=== PATIENT | male | born 1940 | race Two or more races ===

== ENCOUNTER 2018-05-10 06:15 | Emergency (ER) | payer MEDICARE ==
[~2018-05-10] VITALS: Ht 177.8 cm; Wt 64.4 kg
--- NOTE | 2018-05-10 06:25 | NUR ---
Pt MARLEY from [facility] for falling. Hematoma noted on Forehead, Abrasion on R elbow. Pt. AXO4. Respirations even and unlabored. Pt put on the solid surface fabricator and pulse ox. Pending eval form CHUCKIE JERONIMO.
[2018-05-10] MEDS ORDERED: ACETAMINOPHEN ES 500 MG TABLET PO ONE (06:30)
[2018-05-10] MEDS ORDERED: ACETAMINOPHEN ES 500 MG TABLET ONE (06:37)
--- NOTE | 2018-05-10 06:41 | NUR ---
Pt taken to CT.
--- NOTE | 2018-05-10 06:55 | NUR ---
EKG at bedside.
[2018-05-10 07:08] LABS: CALCIUM, SERUM 8.5 mg/dL (8.5-10.1); CARBON DIOXIDE 28 mmol/L (21-32); CHLORIDE 99 mmol/L (98-107); CREATININE 0.8 mg/dL (0.6-1.3); GLUCOSE 95 mg/dL (74-106); SODIUM SERUM 132 mmol/L (136-145); UREA NITROGEN, BLOOD 13 mg/dL (7-18)
[2018-05-10 07:11] LABS: BASOPHILS % (AUTO) 0.3 % (0.0-2.0); EOSINOPHILS % (AUTO) 3.4 % (0.0-6.0); HEMATOCRIT 37 % (39-51); HEMOGLOBIN 12.1 g/dL (13.5-17.5); LYMPHOCYTES # (AUTO) 1.1 /CMM (0.8-4.8); LYMPHOCYTES % (AUTO) 23.8 % (20.0-44.0); MEAN CORPUSCULAR HGB CONC 33 g/dl (31.0-36.0); MEAN CORPUSCULAR VOLUME 84 fL (80-96); MONOCYTES # (AUTO) 0.6 /CMM (0.1-1.30); MONOCYTES % (AUTO) 13.5 % (2.0-12.0); NEUTROPHILS # (AUTO) 2.6 /CMM (1.8-8.9); PLATELET COUNT (AUTO) 196 /CMM (150-450); RED BLOOD CELL COUNT(AUTO) 4.39 MIL/uL (4.5-6.0); WHITE BLOOD COUNT (AUTO) 4.5 K/uL (4.3-11.0)
[2018-05-10 07:14] LABS: ALANINE AMINOTRANSFERASE 23 U/L (12-78); ALKALINE PHOSPHATASE 66 U/L (46-116); ASPARTATE AMINOTRANSFERASE 9 U/L (15-37); BILIRUBIN,DIRECT 0.1 mg/dL (0.0-0.2); BILIRUBIN,TOTAL 0.4 mg/dL (0.2-1.0); TOTAL PROTEIN, SERUM 6.4 g/dL (6.4-8.2)
--- NOTE | 2018-05-10 07:32 | NUR ---
Report given to Nomi SHAH for CODIE.
--- NOTE | 2018-05-10 10:21 | NUR ---
called reva eta is 1200 per janette with trip number [id number]
--- NOTE | 2018-05-10 11:10 | NUR ---
Patient discharged back to SNF in stable condition. Written and verbal after care instructions given. Patient verbalizes understanding of instruction, unable to sign at this time due to fracture. Sling applied. EMT came and report given. Transferred to facility in no distress.
[2018-05-10 11:14] VITALS: BP 118/68
== END 2018-05-10 11:15 ==
LOC: EDSEX 06:20 → ER 06:20
DX: S42.254A Nondisplaced fracture of greater tuberosity of right humerus, initial encounter for closed fracture (principal); S00.83XA Contusion of other part of head, initial encounter; S50.311A Abrasion of right elbow, initial encounter; G20 Parkinson's disease; F02.80 Dementia in other diseases classified elsewhere, unspecified severity, without behavioral disturbance, psychotic disturbance, mood disturbance, and anxiety; W18.09XA Striking against other object with subsequent fall, initial encounter; Y93.89 Activity, other specified; Y92.002 Bathroom of unspecified non-institutional (private) residence as the place of occurrence of the external cause; Y99.8 Other external cause status; R41.82 Altered mental status, unspecified
CPT/HCPCS: 36415; 70450; 72125; 73060; 73080; 80048; 80076; 84484 ×2; 85025; 85730; 93005 ×2; 99285; A4606

== ENCOUNTER 2018-08-11 20:25 | Inpatient (IN) | payer MEDICARE, MEDICAID ==
[~2018-08-11] VITALS: Ht 175.3 cm; Wt 71.7 kg
--- NOTE | 2018-08-11 20:40 | NUR ---
TO BED 3 [facility] C/O FEVER OF 102 X3 HOURS. PT MORE ALTERED THAN NORMAL PER EMT REPORT. PLACE PT ON CARDAIC MONITORING, CONTINUOUS POX. PENDING ER MD HERNADEZ.
[2018-08-11] MEDS ORDERED: PIPERACILLIN /TAZOBACTAM 3.375 G VIAL IV ONE (20:51)
[2018-08-11] MEDS ORDERED: LIDOCAINE 2% JEL UROJET 10 ML MM ONE ×2 (20:52→22:00)
[2018-08-11 20:57] LABS: BASOPHILS % (AUTO) 0.2 % (0.0-2.0); HEMATOCRIT 37 % (39-51); HEMOGLOBIN 12.4 g/dL (13.5-17.5); LYMPHOCYTES # (AUTO) 0.5 /CMM (0.8-4.8); LYMPHOCYTES % (AUTO) 5.2 % (20.0-44.0); MEAN CORPUSCULAR HGB CONC 34 g/dl (31.0-36.0); MEAN CORPUSCULAR VOLUME 86 fL (80-96); MONOCYTES # (AUTO) 0.7 /CMM (0.1-1.30); MONOCYTES % (AUTO) 7.4 % (2.0-12.0); NEUTROPHILS # (AUTO) 8.7 /CMM (1.8-8.9); NEUTROPHILS % (AUTO) 87.2 % (43.0-81.0); PLATELET COUNT (AUTO) 184 /CMM (150-450); RED BLOOD CELL COUNT(AUTO) 4.27 MIL/uL (4.5-6.0); WHITE BLOOD COUNT (AUTO) 9.9 K/uL (4.3-11.0)
[2018-08-11] MEDS ORDERED: IV NS 0.9% 1,000 ML BAG IV ONE ×2 (21:00)
[2018-08-11] MEDS ORDERED: IV NS 0.9% 500 ML BAG IV ONE (21:00)
[2018-08-11] MEDS ORDERED: PIPERACILLIN /TAZOBACTAM 3.375 G in IV D5W 50 ML IV ONE (21:00)
--- NOTE | 2018-08-11 21:05 | NUR ---
I&O cath done. urine sample collected and sent to lab.
[2018-08-11 21:06] LABS: CALCIUM, SERUM 8.4 mg/dL (8.5-10.1); CARBON DIOXIDE 28 mmol/L (21-32); CHLORIDE 96 mmol/L (98-107); CREATININE 0.9 mg/dL (0.6-1.3); GLUCOSE 139 mg/dL (74-106); POTASSIUM 3.9 mmol/L (3.5-5.1); SODIUM SERUM 132 mmol/L (136-145); UREA NITROGEN, BLOOD 16 mg/dL (7-18)
[2018-08-11 21:11] LABS: ALANINE AMINOTRANSFERASE 26 U/L (12-78); ALBUMIN 2.9 g/dL (3.4-5.0); ALKALINE PHOSPHATASE 49 U/L (46-116); ASPARTATE AMINOTRANSFERASE 14 U/L (15-37); BILIRUBIN,DIRECT 0.1 mg/dL (0.0-0.2); BILIRUBIN,TOTAL 0.4 mg/dL (0.2-1.0); TOTAL PROTEIN, SERUM 6.6 g/dL (6.4-8.2)
--- NOTE | 2018-08-11 21:19 | NUR ---
DAUGHTER IN-LAW ARSLAN IS PERSON OF CONTACT
[2018-08-11 21:26] LABS: APPEARANCE,URINE CLEAR (CLEAR); BILIRUBIN,URINE NEGATIVE (NEGATIVE); BLOOD, URINE NEGATIVE Ery/uL (NEGATIVE); COLOR,URINE YELLOW (YELLOW); KETONES,URINE TRACE (NEGATIVE); LEUKOCYTE ESTERASE ,URINE NEGATIVE (NEGATIVE); NITRITE, URINE NEGATIVE (NEGATIVE); PROTEIN,URINE NEGATIVE (NEGATIVE); UGLUCOSE NEGATIVE (NEGATIVE)
--- NOTE | 2018-08-11 21:35 | NUR ---
CALLED FOR ICU BED ([phone]), TURNING IN MOVE SHEET.
[2018-08-11 21:41] LABS: BACTERIA,URINE Rare /HPF (None Seen); RBC,URINE NONE SEEN /HPF (0-2); SQUAMOUS EPITHELIAL CELL,UR Rare /HPF (None Seen); WBC,URINE 0-2 /HPF (0-3)
--- NOTE | 2018-08-11 21:50 | NUR ---
ER SPOKE TO NONA DOAN REGARDING PT ADMISSION. WILL CALL FOR REPORT.
[2018-08-11] MEDS ORDERED: ZOLPIDEM TARTRATE 5 MG TABLET PO PRN (22:00)
[2018-08-11] MEDS ORDERED: MAGNESIUM HYDROXIDE 30 ML UDC PO PRN (22:00)
[2018-08-11] MEDS ORDERED: ATORVASTATIN 40 MG TABLET PO SCH (22:00)
[2018-08-11] MEDS ORDERED: Z GUARD REMEDY 2 OZ OINT TP PRN (22:00)
[2018-08-11] MEDS ORDERED: ONDANSETRON HCL/PF 4 MG/2 ML VIAL IVP PRN (22:00)
[2018-08-11] MEDS ORDERED: CRAN450C PO (22:28)
[2018-08-11] MEDS ORDERED: DOCU100C36 PO (22:28)
[2018-08-11] MEDS ORDERED: BENZ2AMP PO (22:28)
[2018-08-11] MEDS ORDERED: DIVA500T2 PO (22:29)
[2018-08-11] MEDS ORDERED: NA P133E RC (22:30)
[2018-08-11] MEDS ORDERED: ATOR10TA PO (22:30)
[2018-08-11] MEDS ORDERED: MAGN2400 PO (22:31)
[2018-08-11] MEDS ORDERED: RISP2TAB23 PO (22:31)
[2018-08-11] MEDS ORDERED: ACET325C5 PO (22:32)
[2018-08-11] MEDS ORDERED: ENOXAPARIN SODIUM 80 MG/0.8 ML DISP.SYRIN SQ ONE (22:33)
--- NOTE | 2018-08-11 22:42 | NUR ---
REPORT CALLED TO CHLORINE PLANT OPERATORPABLO JOHNSON. WILL TRANSPORT PT VIA ACLS PROTOCOL.
[2018-08-11] MEDS: ENOXAPARIN SODIUM 60 MG/0.6 ML DISP.SYRIN SQ SCH (23:56)
[2018-08-12] VITALS (63 sets, daily range): BP systolic 78–124; BP diastolic 36–79
[2018-08-12] MEDS ORDERED: ALBUTEROL FS 2.5 MG/0.5 ML VIAL.NEB NEB PRN (03:00)
[2018-08-12] MEDS ORDERED: IV NS 0.9% 1,000 ML IV PRN (03:00)
[2018-08-12] MEDS ORDERED: NOREPINEPHRINE 4 MG/4 ML AMPUL IV ONE (04:05)
[2018-08-12] MEDS: NOREPINEPHRINE 8 MG in IV D5W 500 ML IV PRN ×2 (04:06→13:36)
--- NOTE | 2018-08-12 04:24 | NUR ---
RN NOTES RECEIVED PATIENT IN BED, AWAKE, ABLE TO COMMUNICATE NEEDS VERBALLY. ALERT AND ORIENTED IN NO APPARENT DISTRESS, BREATHING EVEN AND UNLABORED. NO COMPLAINT OF PAIN OR DISCOMFORT. BREATHING EVEN AND UNLABORED. ON 2LPM O2 VIA NASAL CANNULA WELL TOLERATED. INSERTED BRYAN CATH PER MD'S ORDER, PROCEDURE WELL TOLERATED. FC DRAINING CLEAR YELLOW WITH NO FOUL ODOR URINE. NOTED AT ABOUT 4AM PATIENT'S BP WENT DOWN TO 78/53. LEVOPHED ADMINISTERED ORDERED, BP WENT UP TO 101/63. NEEDS ATTENDED. KEPT CLEAN AND DRY. REMAINS AFEBRILE WITH SKIN WARM AND DRY TO TOUCH. WILL ENDORSE TO AM SHIFT FOR CONTINUITY OF CARE
[2018-08-12] MEDS ORDERED: PIPERACILLIN /TAZOBACTAM 3.375 G VIAL IV ONE (04:28)
[2018-08-12 04:55] LABS: BASOPHILS % (AUTO) 0.1 % (0.0-2.0); HEMATOCRIT 33 % (39-51); HEMOGLOBIN 11.3 g/dL (13.5-17.5); LYMPHOCYTES # (AUTO) 0.9 /CMM (0.8-4.8); MEAN CORPUSCULAR HGB CONC 34 g/dl (31.0-36.0); MEAN CORPUSCULAR VOLUME 87 fL (80-96); MONOCYTES # (AUTO) 0.8 /CMM (0.1-1.30); MONOCYTES % (AUTO) 8.5 % (2.0-12.0); NEUTROPHILS # (AUTO) 7.9 /CMM (1.8-8.9); NEUTROPHILS % (AUTO) 82.4 % (43.0-81.0); PLATELET COUNT (AUTO) 147 /CMM (150-450); WHITE BLOOD COUNT (AUTO) 9.5 K/uL (4.3-11.0)
[2018-08-12] MEDS ORDERED: PIPERACILLIN /TAZOBACTAM 3.375 G in IV D5W 50 ML IV SCH (05:00)
[2018-08-12] MEDS: IPRATROPIUM NEB FS 0.5 MG/2.5 ML AMPUL.NEB NEB PRN (05:00)
[2018-08-12] MEDS: ACETYLCYSTEINE 10% SOLN 400 MG/4 ML VIAL NEB SCH ×4 (05:00→23:17)
[2018-08-12 05:08] LABS: CALCIUM, SERUM 7.4 mg/dL (8.5-10.1); CARBON DIOXIDE 25 mmol/L (21-32); CHLORIDE 101 mmol/L (98-107); CREATININE 0.6 mg/dL (0.6-1.3); GLUCOSE 88 mg/dL (74-106); MAGNESIUM 1.4 mg/dL (1.8-2.4); POTASSIUM 3.3 mmol/L (3.5-5.1); SODIUM SERUM 132 mmol/L (136-145); UREA NITROGEN, BLOOD 13 mg/dL (7-18)
[2018-08-12 05:16] LABS: CHOLESTEROL 75 mg/dL (<200); HDL CHOLESTEROL 38 mg/dL (40-60); LDL 31 mg/dL (0-99); TRIGLYCERIDES 19 mg/dL (30-150)
--- NOTE | 2018-08-12 06:53 | NUR ---
RN NOTES LAB CALLED CRITICAL HIGH RESULT FOR TROPONIN 4.8 FROM 2.8 AND LOW MAGNESIUM LEVEL. CALLED MD AND OBTAINED ORDER OF 2 GR MG. TRANSCRIBED ORDER, STILL WAITING FOR PHARMACY TO VERIFY. WILL ENDORSE TO NEXT SHIFT FOR CONTINUITY OF CARE.
--- NOTE | 2018-08-12 07:15 | NUR ---
RN INITIAL NOTES RECEIVED PT ASLEEP, EASY TO AROUSE. ON 02 VIA NC AT 2LM. NO RESPIRATORY DISTRESS NOTED. NO SOB NOTED. NO SIGNS OF ANY PAIN. HOB ELEVATED. IV LINES IN PLACE. IVF INFUSING. ON LEVO AT 6MCG/MIN. WILL TITRATE ACCORDINGLY. FC IN PLACE. BLE ELEVATED. WILL MONITOR
[2018-08-12 08:21] LABS: THYROID STIMULATING HORMONE 0.992 uIU/mL (0.358-3.74)
[2018-08-12] MEDS ORDERED: BENZ0.5T43 PO (08:28)
[2018-08-12] MEDS ORDERED: MAGN400O6 PO (08:28)
[2018-08-12] MEDS ORDERED: RISP0.2515 PO (08:28)
[2018-08-12] MEDS ORDERED: DIVA500T2 PO (08:28)
[2018-08-12] MEDS ORDERED: NA P133E RC (08:28)
[2018-08-12] MEDS: Magnesium 1GM/D5W 100ML PREMIX 100 ML IV SCH ×4 (08:47→11:50)
[2018-08-12] MEDS: ASPIRIN 81 MG TAB.CHEW PO SCH (08:47)
[2018-08-12] MEDS: POTASSIUM CHLORIDE 20 MEQ TAB.PRT.SR PO SCH ×3 (08:47→10:27)
[2018-08-12] MEDS: IV NS 0.9% 1,000 ML IV PRN ×2 (08:47→13:28)
[2018-08-12] MEDS: ENOXAPARIN SODIUM 60 MG/0.6 ML DISP.SYRIN SQ SCH ×2 (09:15→21:30)
--- NOTE | 2018-08-12 13:00 | NUR ---
RN NOTES SEEN AND EXAMINED BY DR ARRIETA. AWARE OF LAB VALUES AND CXR RESULT. WILLAM PICC INSERTED DUE TO LEVO USE. PT ON LEVO. MAGNESIUM REPLACED. TROPONIN 4.257 FROM 4.80, TRENDING DOWN. DR GILMORE AWARE. ORDERED ECHO AND EKG. WILL CLOSELY MONITOR
[2018-08-12] MEDS: PIPERACILLIN /TAZOBACTAM 3.375 G in IV D5W 100 ML IV SCH ×2 (13:28→21:30)
--- NOTE | 2018-08-12 16:28 | NUR ---
PT RESTING ON O2 AT 2 LPM NC ON [id number] RUNNING THROUGH [employer]
--- NOTE | 2018-08-12 17:49 | NUR ---
TEXTED MD ARRIETA TO SEE IF PT CAN EAT KUB DONE
--- NOTE | 2018-08-12 17:53 | NUR ---
CLOSING PT ALERT VERBAL BUT WITH HISTORY OF DEMENTIA, PT ON LEVO DRIP AT 8 MCG THROUGH PICC IN WILLAM DOWNING DONE DINNER ORDERED FOR PT CARDIAC DIET PT TAKEN OFF FLUIDS AND HAS BRYAN ALL NEEDS TENDED TOO WILL ENDORSE CARE TO PM SHIFT FOR CONTINUITY OF CARE
--- NOTE | 2018-08-12 18:20 | NUR ---
SWALLOW TEST PT SAT UPRIGHT ABLE TO COUGH AND HAS A GAG. PT GIVEN ICE CHIPS, WATER,JUICE, APPLE SAUCE, AND CRACKER ALL WITHOUT COUGHING OR CHOKING
--- NOTE | 2018-08-12 18:27 | NUR ---
SWALLOW EVAL ALSO GAVE PUDDING
--- NOTE | 2018-08-12 19:30 | NUR ---
PROFESSOR OF BIOSTATISTICS RCD PT W/DX NSTEMI; PT A/O x2 NSR ON MONITOR; ON LEVOPHED @ 8 MCG/MIN TO MAINTAIN SBP >90<150. BRYAN CATH DRAINING ADEQUATE AMOUNT OF DARK COLORED URINE.
--- NOTE | 2018-08-12 19:40 | NUR ---
LABOR CONCILIATOR CALLED [facility], OTHER UNITS, NURSING INDUSTRIAL CONVEYOR BELT REPAIRER NO SCD MACHINES AVAILABLE AT THIS TIME.
--- NOTE | 2018-08-12 23:30 | NUR ---
AVICULTURIST PT NOTED TO BE CONFUSED AT THIS TIME; ASKING TO BE PREPARED FOR BREAKFAST. REORIENTED TO TIME AND SITUATION AND PT COMPLIANT WITH SITUATION. CONTINUE TO MONITOR.
[2018-08-13] VITALS (79 sets, daily range): BP systolic 85–123; BP diastolic 36–74
[2018-08-13] MEDS: PIPERACILLIN /TAZOBACTAM 3.375 G in IV D5W 100 ML IV SCH ×3 (04:00→20:47)
[2018-08-13 04:57] LABS: BASOPHILS % (AUTO) 0.1 % (0.0-2.0); EOSINOPHILS % (AUTO) 0.1 % (0.0-6.0); HEMATOCRIT 31 % (39-51); HEMOGLOBIN 10.6 g/dL (13.5-17.5); LYMPHOCYTES # (AUTO) 0.7 /CMM (0.8-4.8); LYMPHOCYTES % (AUTO) 8.4 % (20.0-44.0); MEAN CORPUSCULAR HGB CONC 34 g/dl (31.0-36.0); MEAN CORPUSCULAR VOLUME 87 fL (80-96); MONOCYTES # (AUTO) 0.5 /CMM (0.1-1.30); MONOCYTES % (AUTO) 5.5 % (2.0-12.0); NEUTROPHILS # (AUTO) 7.4 /CMM (1.8-8.9); NEUTROPHILS % (AUTO) 85.9 % (43.0-81.0); PLATELET COUNT (AUTO) 149 /CMM (150-450); RED BLOOD CELL COUNT(AUTO) 3.55 MIL/uL (4.5-6.0); WHITE BLOOD COUNT (AUTO) 8.7 K/uL (4.3-11.0)
[2018-08-13 05:31] LABS: ALANINE AMINOTRANSFERASE 17 U/L (12-78); ALKALINE PHOSPHATASE 42 U/L (46-116); ASPARTATE AMINOTRANSFERASE 15 U/L (15-37); BILIRUBIN,TOTAL 0.5 mg/dL (0.2-1.0); CALCIUM, SERUM 7.3 mg/dL (8.5-10.1); CARBON DIOXIDE 25 mmol/L (21-32); CHLORIDE 99 mmol/L (98-107); CREATININE 0.8 mg/dL (0.6-1.3); GLUCOSE 98 mg/dL (74-106); PHOSPHORUS 2.7 mg/dL (2.5-4.9); POTASSIUM 3.9 mmol/L (3.5-5.1); SODIUM SERUM 129 mmol/L (136-145); TOTAL PROTEIN, SERUM 5.4 g/dL (6.4-8.2); UREA NITROGEN, BLOOD 12 mg/dL (7-18)
--- NOTE | 2018-08-13 06:55 | NUR ---
BIG 6 DEALER LEVOPHED TITRATED TO 1 MCG/MIN WITH INTERMITTENT SBP IN THE 80s. CONTINUE TO MONITOR.
--- NOTE | 2018-08-13 07:05 | NUR ---
MANAGER ASSISTED LIVING INITIAL NOTES PT RECEIVED IN STABLE CONDITION. A/O X3. NO SOB OR ACUTE SIGNS OF DISTRESS NOTED. BREATHING IS EVEN AND UNLABORED. PT ON 2L VIA NC AND SATING WELL. HE DENIES ANY CHEST PAIN OR DISCOMFORT. PT SINUS RHYTHM ON THE MONITOR. RIGHT UPPER ARM PICC LINE NOTED TO BE C/D/I. PT RECEIVING LEVO AT 1MIC/MIN. BP STABLE AT THIS TIME. IVF OFF AT THIS TIME. F/C NOTED TO BE INTACT AND DRAINING. BED IN LOW LOCKED POSITION, SIDE RIALS UP X2, CALL LIGHT WITHIN REACH. WILL CONTINUE TO MONITOR
[2018-08-13] MEDS: ACETYLCYSTEINE 10% SOLN 400 MG/4 ML VIAL NEB SCH ×3 (07:57→23:21)
--- NOTE | 2018-08-13 09:00 | NUR ---
GOSPEL WORKER NOTES: CDIFF SEND OUT PT NOTED TO HAVE THREE CONSECUTIVE LIQUID STOOLS. AD BEDSIDE. VERBAL ORDER OBTAINED TO SEND SAMPLE OUT FRO C DIFF. VERBAL ORDER ALSO OBTAINED TO INSERT F/C Addendum: 08/13/18 at 1741 by CAMI SABA RN PLEASE EXCUSE NOTE THIS WAS INTENDED FOR ANOTHER PT
--- NOTE | 2018-08-13 10:00 | NUR ---
GLASS CUTTER NOTES: IVF F/U ACCORDING TO NIGHTSHIFT RN AND PREVIOUS DAYSHIFT RN, IVF WERE D/C BY DR GILMORE, HOWEVER ORDER STILL REMAINS IN EMAR. DR GILMORE CONTACTED AND GAVE A TELEPHONE ORDER TO CONTINUE FLUIDS AT 125ML/HR. WILL RESUME ADMINISTRATION
[2018-08-13] MEDS: ASPIRIN 81 MG TAB.CHEW PO SCH (10:02)
[2018-08-13] MEDS: ENOXAPARIN SODIUM 40 MG/0.4 ML DISP.SYRIN SQ SCH (10:02)
[2018-08-13] MEDS: IV NS 0.9% 1,000 ML IV PRN ×2 (10:13→22:45)
[2018-08-13] MEDS: NOREPINEPHRINE 8 MG in IV D5W 500 ML IV PRN (10:27)
[2018-08-13] MEDS: SOD FERRIC GLUC 125 MG in IV NS 0.9% 100 ML IV SCH (13:01)
--- NOTE | 2018-08-13 18:53 | NUR ---
FORMULA ROOM WORKER CLOSING NOTES PT REMAINS STABLE. ALL NEEDS MET AND ORDERS CARRIED OUT ACCORDINGLY. ALL DUE MEDS GIVEN. PRN CARE RENDERED. TRIED TO TITRATE LEVO OFF HOWEVER PT'S SYSTOLIC DROOPED TO HIGH 70S MID 80S AFTER A FEW CYCLES. SAFETY MEASURES REMAIN IN PLACE. WILL ENDORSE TO NIGHTSHIFT RN FOR CODIE
[2018-08-14] VITALS (58 sets, daily range): BP systolic 90–126; BP diastolic 47–82
[2018-08-14] MEDS: PIPERACILLIN /TAZOBACTAM 3.375 G in IV D5W 100 ML IV SCH ×3 (04:24→20:28)
[2018-08-14 05:04] LABS: BASOPHILS % (AUTO) 0.2 % (0.0-2.0); EOSINOPHILS % (AUTO) 0.6 % (0.0-6.0); HEMATOCRIT 33 % (39-51); HEMOGLOBIN 10.9 g/dL (13.5-17.5); LYMPHOCYTES # (AUTO) 0.8 /CMM (0.8-4.8); LYMPHOCYTES % (AUTO) 11.8 % (20.0-44.0); MEAN CORPUSCULAR HGB CONC 34 g/dl (31.0-36.0); MEAN CORPUSCULAR VOLUME 87 fL (80-96); MONOCYTES # (AUTO) 0.6 /CMM (0.1-1.30); MONOCYTES % (AUTO) 8.8 % (2.0-12.0); NEUTROPHILS # (AUTO) 5.4 /CMM (1.8-8.9); NEUTROPHILS % (AUTO) 78.6 % (43.0-81.0); PLATELET COUNT (AUTO) 136 /CMM (150-450); RED BLOOD CELL COUNT(AUTO) 3.72 MIL/uL (4.5-6.0); WHITE BLOOD COUNT (AUTO) 6.9 K/uL (4.3-11.0)
[2018-08-14 05:17] LABS: CALCIUM, SERUM 7.5 mg/dL (8.5-10.1); CARBON DIOXIDE 24 mmol/L (21-32); CHLORIDE 99 mmol/L (98-107); CREATININE 0.6 mg/dL (0.6-1.3); GLUCOSE 98 mg/dL (74-106); MAGNESIUM 1.8 mg/dL (1.8-2.4); PHOSPHORUS 3.2 mg/dL (2.5-4.9); SODIUM SERUM 130 mmol/L (136-145); UREA NITROGEN, BLOOD 10 mg/dL (7-18)
[2018-08-14] MEDS: IV NS 0.9% 1,000 ML IV PRN ×4 (07:45→23:26)
[2018-08-14] MEDS: IPRATROPIUM NEB FS 0.5 MG/2.5 ML AMPUL.NEB NEB PRN ×3 (07:54→23:54)
[2018-08-14] MEDS: ACETYLCYSTEINE 10% SOLN 400 MG/4 ML VIAL NEB SCH ×3 (07:54→23:54)
--- NOTE | 2018-08-14 08:12 | NUR ---
RT PT UNABLE TO COMPLETE CPT THERAPY DUE TO TOLERANCE. Addendum: 08/14/18 at 0813 by EVA BEY RT Amended: Links added.
[2018-08-14] MEDS: ASPIRIN 81 MG TAB.CHEW PO SCH (08:30)
[2018-08-14] MEDS: ENOXAPARIN SODIUM 40 MG/0.4 ML DISP.SYRIN SQ SCH (08:31)
[2018-08-14] MEDS ORDERED: NOREPINEPHRINE 8 MG in IV D5W 500 ML IV PRN (10:30)
--- NOTE | 2018-08-14 11:31 | NUR ---
RN NOTES 0730-RECEIVED PATIENT FROM RN. PATIENT REMAISN ON LEVOPHED FOR BP SUPPORT. PER REPORT, SEVERAL ATTEMPTS DONE TO TURN OFF BUT SBP GOES TO 80'S, CONTINUE MONITOR . 0900-IVF RATE DECREASED, NOTED SBP ALSO DECREASED, DR. GILMORE NOTIFIED, MD WITH ORDERS.TROP RESULTS ALSO REPORTEDTO HIM. PATIENT AWAKE, ALERT. SAFETY MAINTAINED
--- NOTE | 2018-08-14 14:49 | NUR ---
RN NOTES 1130-REMAINS ON LEVOPHED DRIP, BP WITHIN BETTER RANGE AFTER IVF TO 125 ML/HR. MONITOR. 1300-FED SAFELY. REPOSITIONED FOR COMFORT AND SAFETY
[2018-08-14] MEDS: SOD FERRIC GLUC 125 MG in IV NS 0.9% 100 ML IV SCH (16:31)
--- NOTE | 2018-08-14 19:23 | NUR ---
RN NOTES 1500-PATIENT AWAKE, ALERT. NO SIGN OF PAIN. STATES HE "WANTS TO GET OUT OF BED", SAFETY MAINTAINED. ORAL CARE DONE. 1800-LEVOPHED OFF FOR NOW, MONITOR BP.FED HIM SAFELY. ASPIRATION PRECAUTIONS OBSERVED. 1900-RESTING. REPORT GIVEN TO RN FOR FURTHER CARE
--- NOTE | 2018-08-14 19:30 | NUR ---
RN NOTE: RECEIVED PT ON BED AWAKE BUT WITH EPISODES OF CONFUSION. NO APPARENT DISTRESS NOTED. DENIES PAIN AND DISCOMFORT AT THIS TIME. ON 2LPM NASAL CANNULA, SATURATING WELL. VITAL SIGNS STABLE AT THIS TIME. RIGHT UPPER ARM PICC LINE INTACT AND PATENT, IVF INFUSING WELL. BRYAN CATH INTACT DRAINING NII COLORED URINE. CALL LIGHT PLACED WITHIN REACH. KEPT CLEAN, DRY AND COMFORTABLE. SIDE RIALS UP X3. BED ALARM ON. BED LOCKED AND IN LOWEST POSITION. WILL CONTINUE TO MONITOR PT.
[2018-08-14] MEDS: VALPROIC ACID 250 MG/5 ML UDC PO SCH (21:46)
[2018-08-15] VITALS (17 sets, daily range): BP systolic 96–139; BP diastolic 44–77
--- NOTE | 2018-08-15 02:27 | NUR ---
RN NOTE: NO APPARENT DISTRESS NOTED. PT STILL HAS EPISODES OF CONFUSION. NO FACIAL GRIMACING OR ANY SIGNS OF PAIN NOTED. ON 2LPM NASAL CANNULA, NO SOB NOTED. VITAL SIGNS STABLE. RIGHT UPPER ARM PICC LINE INTACT AND PATENT, IVF INFUSING WELL. BRYAN CATH INTACT, BLOOD TINGED URINE STILL NOTED. KEPT CLEAN, DRY AND COMFORTABLE. ENDORSED TO PABLO GARNER FOR CONTINUITY OF CARE.
[2018-08-15 04:14] LABS: BASOPHILS % (AUTO) 0.5 % (0.0-2.0); EOSINOPHILS % (AUTO) 1.1 % (0.0-6.0); HEMATOCRIT 32 % (39-51); HEMOGLOBIN 10.8 g/dL (13.5-17.5); LYMPHOCYTES # (AUTO) 0.9 /CMM (0.8-4.8); MEAN CORPUSCULAR HGB CONC 34 g/dl (31.0-36.0); MEAN CORPUSCULAR VOLUME 87 fL (80-96); MONOCYTES # (AUTO) 0.6 /CMM (0.1-1.30); NEUTROPHILS # (AUTO) 5.1 /CMM (1.8-8.9); NEUTROPHILS % (AUTO) 76.4 % (43.0-81.0); PLATELET COUNT (AUTO) 153 /CMM (150-450); RED BLOOD CELL COUNT(AUTO) 3.63 MIL/uL (4.5-6.0); WHITE BLOOD COUNT (AUTO) 6.7 K/uL (4.3-11.0)
[2018-08-15 04:30] LABS: ALANINE AMINOTRANSFERASE 21 U/L (12-78); ALBUMIN 2.1 g/dL (3.4-5.0); ALKALINE PHOSPHATASE 39 U/L (46-116); ASPARTATE AMINOTRANSFERASE 12 U/L (15-37); BILIRUBIN,TOTAL 0.4 mg/dL (0.2-1.0); CALCIUM, SERUM 7.5 mg/dL (8.5-10.1); CARBON DIOXIDE 24 mmol/L (21-32); CHLORIDE 97 mmol/L (98-107); CREATININE 0.5 mg/dL (0.6-1.3); GLUCOSE 94 mg/dL (74-106); MAGNESIUM 1.6 mg/dL (1.8-2.4); PHOSPHORUS 3.4 mg/dL (2.5-4.9); POTASSIUM 3.7 mmol/L (3.5-5.1); SODIUM SERUM 129 mmol/L (136-145); TOTAL PROTEIN, SERUM 5.6 g/dL (6.4-8.2); UREA NITROGEN, BLOOD 9 mg/dL (7-18)
[2018-08-15] MEDS: PIPERACILLIN /TAZOBACTAM 3.375 G in IV D5W 100 ML IV SCH ×2 (05:50→13:02)
[2018-08-15] MEDS: ACETYLCYSTEINE 10% SOLN 400 MG/4 ML VIAL NEB SCH ×3 (07:51→23:02)
[2018-08-15] MEDS: IV NS 0.9% 1,000 ML IV PRN (07:55)
[2018-08-15] MEDS: ASPIRIN 81 MG TAB.CHEW PO SCH (08:39)
[2018-08-15] MEDS: ENOXAPARIN SODIUM 40 MG/0.4 ML DISP.SYRIN SQ SCH (08:40)
--- NOTE | 2018-08-15 08:43 | NUR ---
RN NOTE 0715: Received patient resting, A/Ox2. On 2 LPM of O2 via NC, 99%, turned off for now, will continue to monitor. No respiratory distress noted. WILLAM PICC intact. IVF infusing as ordered. Off pressors for now. Allen cath intact, noted with clear vianca colored urine drained to BSD. 0800: S/E by Dr. Brady. 0830: DCd IVF as ordered. 0840: No any significant changes noted at this time. Kept clean, warm and dry. Needs attended.
[2018-08-15] MEDS: HYDROCORTISONE SOD SUCCINATE 100 MG/2 ML VIAL IV SCH ×3 (09:10→16:13)
[2018-08-15] MEDS: VALPROIC ACID 250 MG/5 ML UDC PO SCH ×4 (09:10→21:00)
[2018-08-15] MEDS: Magnesium 1GM/D5W 100ML PREMIX 100 ML IV SCH ×2 (10:37→11:45)
[2018-08-15] MEDS: ACETAMINOPHEN 325 MG TABLET PO PRN (11:48)
--- NOTE | 2018-08-15 12:23 | NUR ---
RN NOTE 1130: S/E by Dr. Pretty, with order to may transfer to Tele. 1220: 25% for lunch tray. C/o headache and refused to be placed on chair at this time, Tylenol given, will monitor.
[2018-08-15] MEDS: SOD FERRIC GLUC 125 MG in IV NS 0.9% 100 ML IV SCH (13:14)
--- NOTE | 2018-08-15 13:50 | NUR ---
RN NOTE laced patient to chair, but needed maximum assist at this time, called Tele 1 to give report but nurse not ready yet, will follow up again in few minutes. Patient assigned to room 112-1 per nurse sup, patient aware re: the transfer order, verbalized understanding.
--- NOTE | 2018-08-15 14:38 | NUR ---
RN NOTE Transferred back top bed, noted with x2 loose BM, brown in color, unable to gather specimen, cleaned. Transferred via bed using ACLS protocol. No any new changes noted. MD ordered to do KUB XR for adb tenderness. Will endorse to [place] to continue monitoring BM. Endorsed to [place] for CODIE. VSS.
--- NOTE | 2018-08-15 15:00 | NUR ---
wireless telegrapher note received patient from icu ,alert ,oriented with some confusion , on tele monitor sr hr 85, on ra no sob noted , vs taken, rt upper arm picc line in place , lt hand hl no s\sinfection noted , with Allen cath to gravity with yellow vianca color urine , bed in lowest and locked position , call light within reach , unit orientation given , vs taken willl cont to monitor closely Addendum: 08/15/18 at 1728 by JACI STEEN RN noted abdomen is distended, c\o tenderness awaiting for kub ,orlin f\u
--- NOTE | 2018-08-15 17:20 | NUR ---
TELE1/RN ENTRY NOTES PATIENT IN BED RESTING COMFORTABLY AT THIS TIME. NO S/S OF ACUTE DISTRESS NOTED. RESP EVEN AND UNLABORED. NO SOB NOTED. PATIENT A/O X 2 WITH PERIODS OF CONFUSION AND DISORIENTATION. NO S/S OF PAIN NOTED AT THIS TIME. F/C IN PLACE , PATENT, DRAINING WELL WITH CLEAR YELLOW URINE. WILLAM PICC LINE SITE NOTED WITH NO S/S OF INFECTION. LF HAND IV SITE NOTED WITH NO INFILTRATION/ INFECTION. SAFETY MAINTAINED, BED AT THE LOWEST POSITION, LOCKED. CALL LIGHT WITHIN REACH. WILL CONTINUE TO MONITOR PATIENT PER PLAN OF CARE.
[2018-08-15] MEDS ORDERED: PEG 3350/NA SULF,BICARB,CL/KCL 4,000 ML BOTTLE PO ONE (18:00)
--- NOTE | 2018-08-15 18:03 | NUR ---
telemetry monitor note kub result reported to dr michele .ordered golytely and gi consult, stated that will call himself , will f\u
--- NOTE | 2018-08-15 18:53 | NUR ---
satellite television installer note spoke with ira jones np gi notified elizabeth result , ordered hold golytely for now, ct abdomen and pelvis with contrast , called to son , telephone consent obtained for ct scan will f\u Addendum: 08/15/18 at 1909 by JACI STEEN RN per ira jones np ok to hold golytely po , taken to ct scan for now will endorsed care to next shift karen
[2018-08-15] MEDS ORDERED: IV NS 0.9% 250 ML IV ONE (19:08)
[2018-08-15] MEDS ORDERED: IOHEXOL-300 100 ML VIAL IV ONE (19:08)
[2018-08-15] MEDS ORDERED: CT SWABBABLE VALVE TRANS SET 1 EA INFUS.SET MC ONE (19:09)
--- NOTE | 2018-08-15 19:22 | NUR ---
tenisha roth rn unmanned equipment operator ordered stat to collect stool for c dif
--- NOTE | 2018-08-15 20:00 | NUR ---
2000 HAZEL JACKSON HERE AND EXAMINED PATIENT WITH ORDERS MADE.
--- NOTE | 2018-08-15 20:58 | NUR ---
[address] OLGUIN FOR SURGERY CONSULT PER HAZEL JACKSON REQUEST, RELAYED TO HIM ABD XRAY RESULT AND CT ABDOMEN RESULT AND HE SAID HE WILL SEE PATIENT TOMORROW.
[2018-08-15] MEDS: IPRATROPIUM NEB FS 0.5 MG/2.5 ML AMPUL.NEB NEB PRN (23:02)
[2018-08-16] VITALS: BP 122/62
[2018-08-16 01:03] LABS: OCCULT BLOOD STOOL NEGATIVE (NEGATIVE)
[2018-08-16 04:00] VITALS: BP 112/52
[2018-08-16] MEDS: ACETAMINOPHEN 325 MG TABLET PO PRN (05:04)
--- NOTE | 2018-08-16 06:56 | NUR ---
TELE1/RN EXIT NOTES PATIENT IN NO S/S OF ACUTE DISTRESS. RESP EVEN AND UNLABORED. NO SOB NOTED. NO S/S OF PAIN NOTED AT THIS TIME. F/C IN PLACE , PATENT, DRAINING WELL WITH CLEAR YELLOW URINE WITH OUTPUT OF 550. ALL DUE MEDS GIVEN ORDERED. PATIENT TOLERATED WELL. WILLAM PICC LINE SITE NOTED WITH NO S/S OF INFECTION. LF HAND IV SITE NOTED WITH NO INFILTRATION/ INFECTION. KEPT PATIENT CLEAN AND DRY. PATIENT ON TELE MONITORING WITH SR WITH PAC'S. SAFETY MAINTAINED, BED AT THE LOWEST POSITION, LOCKED. CALL LIGHT WITHIN REACH. ALL NEEDS ATTENDANTS. WILL ENDORSE TO AM SHIFT NURSE FOR CODIE.
[2018-08-16] MEDS: IPRATROPIUM NEB FS 0.5 MG/2.5 ML AMPUL.NEB NEB PRN ×2 (07:18→16:10)
[2018-08-16] MEDS: ACETYLCYSTEINE 10% SOLN 400 MG/4 ML VIAL NEB SCH ×3 (07:18→23:26)
[2018-08-16 07:29] LABS: BASOPHILS % (AUTO) 0.1 % (0.0-2.0); EOSINOPHILS % (AUTO) 0.1 % (0.0-6.0); HEMATOCRIT 33 % (39-51); LYMPHOCYTES % (AUTO) 15.8 % (20.0-44.0); MEAN CORPUSCULAR HGB CONC 34 g/dl (31.0-36.0); MEAN CORPUSCULAR VOLUME 86 fL (80-96); MONOCYTES # (AUTO) 0.7 /CMM (0.1-1.30); MONOCYTES % (AUTO) 11.8 % (2.0-12.0); NEUTROPHILS # (AUTO) 4.6 /CMM (1.8-8.9); NEUTROPHILS % (AUTO) 72.2 % (43.0-81.0); PLATELET COUNT (AUTO) 198 /CMM (150-450); RED BLOOD CELL COUNT(AUTO) 3.82 MIL/uL (4.5-6.0); WHITE BLOOD COUNT (AUTO) 6.3 K/uL (4.3-11.0)
[2018-08-16 07:33] LABS: CALCIUM, SERUM 7.7 mg/dL (8.5-10.1); CARBON DIOXIDE 26 mmol/L (21-32); CHLORIDE 95 mmol/L (98-107); CREATININE 0.6 mg/dL (0.6-1.3); GLUCOSE 93 mg/dL (74-106); MAGNESIUM 2.1 mg/dL (1.8-2.4); PHOSPHORUS 3.5 mg/dL (2.5-4.9); POTASSIUM 3.4 mmol/L (3.5-5.1); SODIUM SERUM 128 mmol/L (136-145); UREA NITROGEN, BLOOD 10 mg/dL (7-18)
[2018-08-16 08:00] VITALS: BP 102/66
[2018-08-16] MEDS ORDERED: POTASSIUM CHLORIDE 20 MEQ TAB.PRT.SR PO SCH (09:00)
[2018-08-16] MEDS: ASPIRIN 81 MG TAB.CHEW PO SCH (10:26)
[2018-08-16] MEDS: VALPROIC ACID 250 MG/5 ML UDC PO SCH ×4 (10:27→20:58)
[2018-08-16] MEDS: POTASSIUM CL. PREMIX PERIPHER. 50 ML IV SCH ×2 (10:27→11:29)
[2018-08-16] MEDS: HYDROCORTISONE SOD SUCCINATE 100 MG/2 ML VIAL IV SCH ×3 (10:28→16:34)
[2018-08-16] MEDS: ENOXAPARIN SODIUM 40 MG/0.4 ML DISP.SYRIN SQ SCH (10:30)
[2018-08-16] MEDS ORDERED: PEG 3350/NA SULF,BICARB,CL/KCL 4,000 ML BOTTLE PO ONE (13:00)
[2018-08-16] MEDS: SOD FERRIC GLUC 125 MG in IV NS 0.9% 100 ML IV SCH (14:12)
--- NOTE | 2018-08-16 14:14 | NUR ---
DR. OLGUIN SEEN AND EXAMINED PATIENT ,NO NEW ORDERS.
--- NOTE | 2018-08-16 15:50 | NUR ---
SEEN AND EVALUATED BY SCARLET JACKSON NP GI AND ORDER NOT TO GIVE GOLELYTELY RELATED TO COLITIS.
[2018-08-16 16:00] VITALS: BP 101/60
[2018-08-16] MEDS: METRONIDAZOLE 500MG/ NS 100ML 500 MG in PREMIX 1 EA IV SCH ×2 (16:34→20:59)
[2018-08-16] MEDS: VANCOMYCIN HCL 125 MG/2.5 ML ORAL.SUSP PO SCH ×2 (18:15→23:08)
--- NOTE | 2018-08-16 19:24 | NUR ---
TELE1/RN ENTRY NOTES PATIENT IN BED, RESTING COMFORTABLY AT THIS TIME. NO S/S OF ACUTE DISTRESS NOTED.. RESP EVEN AND UNLABORED. NO SOB NOTED. PATIENT A/O X 2 WITH PERIODS OF CONFUSION AND DISORIENTATION. NO S/S OF PAIN NOTED AT THIS TIME. PATIENT ON CONTACT ISOLATION FOR C-DIFF. ISOLATION PRECAUTIONS MAINTAINED. F/C IN PLACE , PATENT, DRAINING WELL. WILLAM PICC LINE SITE NOTED WITH NO S/S OF INFECTION. LF HAND IV SITE NOTED WITH NO INFILTRATION/ INFECTION. SAFETY MAINTAINED, BED AT THE LOWEST POSITION, LOCKED. CALL LIGHT WITHIN REACH. WILL CONTINUE TO MONITOR PATIENT PER PLAN
[2018-08-16 20:00] VITALS: BP 108/63
[2018-08-17 04:00] VITALS: BP 124/74
[2018-08-17] MEDS: METRONIDAZOLE 500MG/ NS 100ML 500 MG in PREMIX 1 EA IV SCH ×3 (05:23→21:27)
[2018-08-17] MEDS: VANCOMYCIN HCL 125 MG/2.5 ML ORAL.SUSP PO SCH ×3 (05:23→17:30)
--- NOTE | 2018-08-17 06:51 | NUR ---
M/S RN EXIT NOTES PATIENT IN NO ACUTE DISTRESS. RESPIRATION EVEN AND UNLABORED. NO SOB NOTED. NO S/S OF PAIN NOTED. ALL DUE MEDS GIVEN ORDERED. PATIENT TOLERATED WELL. NO SIGNIFICANT CHANGE IN CONDITION NOTED. SAFETY MAINTAINED. KEPT CLEAN AND DRY. CALL LIGHT WITHIN REACH. WILL ENDORSE TO AM SHIFT NURSE FOR CODIE.
[2018-08-17 06:58] LABS: BASOPHILS % (AUTO) 0.1 % (0.0-2.0); HEMATOCRIT 31 % (39-51); HEMOGLOBIN 10.6 g/dL (13.5-17.5); LYMPHOCYTES % (AUTO) 12.7 % (20.0-44.0); MEAN CORPUSCULAR HGB CONC 34 g/dl (31.0-36.0); MEAN CORPUSCULAR VOLUME 86 fL (80-96); MONOCYTES # (AUTO) 0.8 /CMM (0.1-1.30); MONOCYTES % (AUTO) 11.2 % (2.0-12.0); NEUTROPHILS # (AUTO) 5.7 /CMM (1.8-8.9); PLATELET COUNT (AUTO) 207 /CMM (150-450); WHITE BLOOD COUNT (AUTO) 7.5 K/uL (4.3-11.0)
[2018-08-17] MEDS: IPRATROPIUM NEB FS 0.5 MG/2.5 ML AMPUL.NEB NEB PRN ×2 (07:10→14:48)
[2018-08-17] MEDS: ACETYLCYSTEINE 10% SOLN 400 MG/4 ML VIAL NEB SCH ×3 (07:10→23:46)
--- NOTE | 2018-08-17 07:25 | NUR ---
RN OPENING NOTES RECEIVED PATIENT IN BED RESTING COMFORTABLY. NO PAIN OR ACUTE DISTRESS AT THIS TIME. RESPIRATION EVEN AND UNLABORED. SKIN IS DRY WARM TO TOUCH. PATIENT ALERT AND ORIENTED X2 WITH PERIODS OF CONFUSION. PATIENT CONTINUES ON CONTACT ISOLATION FOR C-DIFF. ISOLATION PRECAUTIONS MAINTAINED. BRYAN CATH INTACT AND PATENT. DRAINING WELL. PATIENT NOTED WITH WILLAM PICC LINE. NO S/S OF INFECTION OR INFILTRATION. LEFT HAND IV SITE NOTED WITH NO INFILTRATION/ INFECTION. ALL NEEDS ANTICIPATED. CALL LIGHT WITHIN REACHED. BED LOCKED AND IN LOWEST POSITION. SAFETY MAINTAINED. DISCUSSED PLAN OF CARE. WILL CONTINUE TO MONITOR CLOSELY.
[2018-08-17 07:27] LABS: ALANINE AMINOTRANSFERASE 19 U/L (12-78); ALBUMIN 1.8 g/dL (3.4-5.0); ALKALINE PHOSPHATASE 34 U/L (46-116); BILIRUBIN,TOTAL 0.2 mg/dL (0.2-1.0); CALCIUM, SERUM 7.5 mg/dL (8.5-10.1); CARBON DIOXIDE 28 mmol/L (21-32); CHLORIDE 100 mmol/L (98-107); CREATININE 0.7 mg/dL (0.6-1.3); GLUCOSE 129 mg/dL (74-106); MAGNESIUM 1.9 mg/dL (1.8-2.4); PHOSPHORUS 3.5 mg/dL (2.5-4.9); POTASSIUM 3.8 mmol/L (3.5-5.1); SODIUM SERUM 132 mmol/L (136-145); UREA NITROGEN, BLOOD 14 mg/dL (7-18)
[2018-08-17 08:00] VITALS: BP 111/66
[2018-08-17] MEDS: ASPIRIN 81 MG TAB.CHEW PO SCH (08:34)
[2018-08-17] MEDS: VALPROIC ACID 250 MG/5 ML UDC PO SCH ×4 (08:34→21:27)
[2018-08-17] MEDS: HYDROCORTISONE SOD SUCCINATE 100 MG/2 ML VIAL IV SCH ×2 (08:34→17:31)
[2018-08-17] MEDS: ENOXAPARIN SODIUM 40 MG/0.4 ML DISP.SYRIN SQ SCH (08:35)
[2018-08-17 08:41] LABS: ASPARTATE AMINOTRANSFERASE 7 U/L (15-37)
[2018-08-17] MEDS: SOD FERRIC GLUC 125 MG in IV NS 0.9% 100 ML IV SCH (14:24)
[2018-08-17 16:00] VITALS: BP 101/50
--- NOTE | 2018-08-17 18:57 | NUR ---
RN CLOSING NOTES PATIENT IN BED SLEEPING COMFORTABLY. PATIENT REMAINED IN STABLE CONDITION DURING THE SHIFT. PROVIDED SAFETY AND COMFORT. NO PAIN OR ACUTE DISTRESS AT THIS TIME. RESPIRATION EVEN AND UNLABORED. SKIN IS DRY WARM TO TOUCH. PATIENT CONTINUES ON CONTACT ISOLATION FOR C-DIFF. ISOLATION PRECAUTIONS MAINTAINED. BRYAN CATH INTACT AND PATENT. DRAINING WELL. PATIENT NOTED WITH WILLAM PICC LINE. NO S/S OF INFECTION OR INFILTRATION. LEFT HAND IV SITE NOTED WITH NO INFILTRATION/ INFECTION. ALL NEEDS ANTICIPATED. CALL LIGHT WITHIN REACHED. WILL CONTINUE TO MONITOR CLOSELY.
[2018-08-17 20:00] VITALS: BP 104/64
--- NOTE | 2018-08-17 20:00 | NUR ---
RN INITIAL MS NOTES PATIENT IN BED RESTING COMFORTABLY. NO PAIN OR ACUTE DISTRESS AT THIS TIME. RESPIRATION EVEN AND UNLABORED. SKIN IS DRY WARM TO TOUCH. PATIENT ALERT AND ORIENTED X2 WITH PERIODS OF CONFUSION. PATIENT CONTINUES ON CONTACT ISOLATION FOR C-DIFF. ISOLATION PRECAUTIONS MAINTAINED. BRYAN CATH INTACT AND PATENT. DRAINING WELL. PATIENT NOTED WITH WILLAM PICC LINE. NO S/S OF INFECTION OR INFILTRATION. LEFT HAND IV SITE NOTED WITH NO INFILTRATION/ INFECTION. ALL NEEDS ANTICIPATED. CALL LIGHT WITHIN REACHED. BED LOCKED AND IN LOWEST POSITION. SAFETY MAINTAINED. DISCUSSED PLAN OF CARE. WILL CONTINUE TO MONITOR CLOSELY.
[2018-08-18] MEDS: VANCOMYCIN HCL 125 MG/2.5 ML ORAL.SUSP PO SCH ×4 (01:32→17:08)
[2018-08-18 04:00] VITALS: BP 98/51
[2018-08-18] MEDS: METRONIDAZOLE 500MG/ NS 100ML 500 MG in PREMIX 1 EA IV SCH ×3 (06:04→21:15)
--- NOTE | 2018-08-18 06:32 | NUR ---
RN CLOSING MS NOTES ENDORSED PATIENT IN BED RESTING COMFORTABLY. NO PAIN OR ACUTE DISTRESS AT THIS TIME. RESPIRATION EVEN AND UNLABORED. SKIN IS DRY WARM TO TOUCH. PATIENT ALERT AND ORIENTED X2 WITH PERIODS OF CONFUSION. PATIENT CONTINUES ON CONTACT ISOLATION FOR C-DIFF. ISOLATION PRECAUTIONS MAINTAINED. BRYAN CATH INTACT AND PATENT. DRAINING WELL. PATIENT NOTED WITH WILLAM PICC LINE. NO S/S OF INFECTION OR INFILTRATION. LEFT HAND IV SITE NOTED WITH NO INFILTRATION/ INFECTION. ALL NEEDS ANTICIPATED. CALL LIGHT WITHIN REACHED. BED LOCKED AND IN LOWEST POSITION. SAFETY MAINTAINED. DISCUSSED PLAN OF CARE. WILL CONTINUE TO MONITOR CLOSELY.
[2018-08-18 06:49] LABS: BASOPHILS % (AUTO) 0.2 % (0.0-2.0); EOSINOPHILS % (AUTO) 0.1 % (0.0-6.0); HEMATOCRIT 32 % (39-51); LYMPHOCYTES # (AUTO) 1.4 /CMM (0.8-4.8); LYMPHOCYTES % (AUTO) 18.2 % (20.0-44.0); MEAN CORPUSCULAR HGB CONC 34 g/dl (31.0-36.0); MEAN CORPUSCULAR VOLUME 86 fL (80-96); MONOCYTES # (AUTO) 0.8 /CMM (0.1-1.30); MONOCYTES % (AUTO) 10.7 % (2.0-12.0); NEUTROPHILS # (AUTO) 5.4 /CMM (1.8-8.9); NEUTROPHILS % (AUTO) 70.8 % (43.0-81.0); PLATELET COUNT (AUTO) 218 /CMM (150-450); RED BLOOD CELL COUNT(AUTO) 3.73 MIL/uL (4.5-6.0); WHITE BLOOD COUNT (AUTO) 7.6 K/uL (4.3-11.0)
[2018-08-18 07:05] LABS: CALCIUM, SERUM 7.9 mg/dL (8.5-10.1); CARBON DIOXIDE 27 mmol/L (21-32); CHLORIDE 99 mmol/L (98-107); CREATININE 0.6 mg/dL (0.6-1.3); GLUCOSE 98 mg/dL (74-106); POTASSIUM 3.9 mmol/L (3.5-5.1); SODIUM SERUM 131 mmol/L (136-145); UREA NITROGEN, BLOOD 19 mg/dL (7-18)
--- NOTE | 2018-08-18 07:25 | NUR ---
RN OPENING NOTES RECEIVED PATIENT IN BED SLEEPING COMFORTABLY. PATIENT ALERT AND ORIENTED X2 WITH PERIODS OF CONFUSION. NO PAIN OR ACUTE DISTRESS AT THIS TIME. RESPIRATION EVEN AND UNLABORED. SKIN IS DRY WARM TO TOUCH. CONTACT ISOLATION FOR C-DIFF MAINTAINED. F/C INTACT AND PATENT. DRAINING WELL. PATIENT NOTED WITH WILLAM PICC LINE. NO S/S OF INFECTION OR INFILTRATION. LEFT HAND IV SITE NOTED WITH NO INFILTRATION OR INFECTION WELL. ALL NEEDS ANTICIPATED. CALL LIGHT WITHIN REACHED. BED LOCKED AND IN LOWEST POSITION. SAFETY MAINTAINED. DISCUSSED PLAN OF CARE. WILL CONTINUE TO MONITOR CLOSELY.
[2018-08-18 08:00] VITALS: BP 101/65
[2018-08-18] MEDS: ACETYLCYSTEINE 10% SOLN 400 MG/4 ML VIAL NEB SCH ×3 (08:12→23:31)
[2018-08-18] MEDS: ASPIRIN 81 MG TAB.CHEW PO SCH (08:30)
[2018-08-18] MEDS: VALPROIC ACID 250 MG/5 ML UDC PO SCH ×4 (08:30→21:15)
[2018-08-18] MEDS: HYDROCORTISONE SOD SUCCINATE 100 MG/2 ML VIAL IV SCH ×2 (08:31→17:05)
[2018-08-18] MEDS: ENOXAPARIN SODIUM 40 MG/0.4 ML DISP.SYRIN SQ SCH (08:33)
[2018-08-18] MEDS ORDERED: PEG 3350/NA SULF,BICARB,CL/KCL 4,000 ML BOTTLE PO ONE ×2 (13:00)
[2018-08-18 16:00] VITALS: BP 100/52
--- NOTE | 2018-08-18 19:47 | NUR ---
RN CLOSING NOTES PATIENT CONTINUES TO REMAIN IS STABLE CONDITION. PROVIDED COMFORT AND SAFETY. HAZEL GUZMAN MADE HER ROUNDS AND ACCORDING TO HER PATIENT WILL NOT GO THRU COLONOSCOPY. SHE ORDERED FOR THE PATIENT TO D/C NPO AND TO D/C GOLYTELY AND TO RESUME PREVIOUS DIET ORDERS. NO PAIN OR ACUTE DISTRESS AT THIS TIME. RESPIRATION EVEN AND UNLABORED. SKIN IS DRY WARM TO TOUCH. CONTACT ISOLATION FOR C-DIFF MAINTAINED. F/C INTACT AND PATENT. DRAINING WELL. PATIENT NOTED WITH WILLAM PICC LINE. NO S/S OF INFECTION OR INFILTRATION. LEFT HAND IV SITE NOTED WITH NO INFILTRATION OR INFECTION WELL. ALL NEEDS ANTICIPATED. CALL LIGHT WITHIN REACHED. BED LOCKED AND IN LOWEST POSITION. SAFETY MAINTAINED. DISCUSSED PLAN OF CARE. WILL CONTINUE TO MONITOR CLOSELY. ENDORSED TO PM NURSE FOR CODIE.
[2018-08-18 20:00] VITALS: BP 104/56
[2018-08-18 20:39] VITALS: BP 104/56
[2018-08-19] MEDS: VANCOMYCIN HCL 125 MG/2.5 ML ORAL.SUSP PO SCH ×5 (00:32→23:49)
[2018-08-19 04:00] VITALS: BP 108/51
[2018-08-19] MEDS: METRONIDAZOLE 500MG/ NS 100ML 500 MG in PREMIX 1 EA IV SCH ×3 (05:52→21:57)
--- NOTE | 2018-08-19 06:35 | NUR ---
RN MS CLOSING NOTE ENDORSED PT FOR CODIE TO AN RN, POSSIBLE DC.
[2018-08-19 07:20] LABS: BASOPHILS % (AUTO) 0.1 % (0.0-2.0); EOSINOPHILS % (AUTO) 0.1 % (0.0-6.0); HEMATOCRIT 34 % (39-51); HEMOGLOBIN 11.4 g/dL (13.5-17.5); LYMPHOCYTES # (AUTO) 1.5 /CMM (0.8-4.8); LYMPHOCYTES % (AUTO) 17.8 % (20.0-44.0); MEAN CORPUSCULAR HGB CONC 34 g/dl (31.0-36.0); MEAN CORPUSCULAR VOLUME 87 fL (80-96); MONOCYTES # (AUTO) 0.8 /CMM (0.1-1.30); MONOCYTES % (AUTO) 9.7 % (2.0-12.0); NEUTROPHILS % (AUTO) 72.3 % (43.0-81.0); PLATELET COUNT (AUTO) 259 /CMM (150-450); RED BLOOD CELL COUNT(AUTO) 3.91 MIL/uL (4.5-6.0); WHITE BLOOD COUNT (AUTO) 8.3 K/uL (4.3-11.0)
[2018-08-19 07:28] LABS: CALCIUM, SERUM 7.8 mg/dL (8.5-10.1); CARBON DIOXIDE 26 mmol/L (21-32); CHLORIDE 100 mmol/L (98-107); CREATININE 0.6 mg/dL (0.6-1.3); GLUCOSE 93 mg/dL (74-106); MAGNESIUM 2.1 mg/dL (1.8-2.4); PHOSPHORUS 3.2 mg/dL (2.5-4.9); POTASSIUM 3.6 mmol/L (3.5-5.1); SODIUM SERUM 132 mmol/L (136-145); UREA NITROGEN, BLOOD 17 mg/dL (7-18)
[2018-08-19] MEDS: IPRATROPIUM NEB FS 0.5 MG/2.5 ML AMPUL.NEB NEB PRN ×2 (07:47→15:24)
[2018-08-19] MEDS: ACETYLCYSTEINE 10% SOLN 400 MG/4 ML VIAL NEB SCH ×3 (07:47→23:30)
[2018-08-19 08:00] VITALS: BP 120/67
[2018-08-19] MEDS: ENOXAPARIN SODIUM 40 MG/0.4 ML DISP.SYRIN SQ SCH (08:15)
[2018-08-19] MEDS: VALPROIC ACID 250 MG/5 ML UDC PO SCH ×4 (08:17→21:57)
[2018-08-19] MEDS: ASPIRIN 81 MG TAB.CHEW PO SCH (08:17)
[2018-08-19] MEDS: HYDROCORTISONE SOD SUCCINATE 100 MG/2 ML VIAL IV SCH ×2 (08:17→17:20)
--- NOTE | 2018-08-19 10:28 | NUR ---
PATIENT COMPLAINING OF ABDOMINAL PAIN. DR. MILLARD NOTIFIED. AWAITING RESPONSE
--- NOTE | 2018-08-19 10:34 | NUR ---
RESPONSE RECEIVED FROM DR. CORONEL NO NEW ORDERS. Addendum: 08/19/18 at 1111 by KIM WHITE RN MILK OF MAGNESIA AND NORCO GIVEN FOR ABDOMINAL PAIN, REPOSITIONED ONTO RIGHT SIDE FOR COMFORT. NO MASSES FELT UPON PALPATION, BOWEL SOUNDS ACTIVE.
[2018-08-19] MEDS: HYDROCODONE/APAP 5/325MG 1 EACH TABLET PO PRN (10:41)
--- NOTE | 2018-08-19 12:38 | NUR ---
PER PATIENT'S SON PAUL, HE DOES NOT KNOW ANY HISTORY. INFORMATION RELATED TO ALLERGIES, PRIOR SURGERIES, ETC BEFORE CT ANGIO UNATTAINABLE. PATIENT HAS HISTORY OF DEMENTIA AND BIPOLAR. Addendum: 08/19/18 at 1242 by KIM WHITE RN MARCELO CASANOVA
[2018-08-19] MEDS ORDERED: CT SWABBABLE VALVE TRANS SET 1 EA INFUS.SET MC ONE (12:53)
[2018-08-19] MEDS ORDERED: IOHEXOL-350 100 ML VIAL IV ONE (12:53)
[2018-08-19] MEDS ORDERED: IV NS 0.9% 250 ML IV ONE (12:53)
[2018-08-19] MEDS ORDERED: NITROGLYCERIN 0.4 MG/TAB BOTTLE SL ONE (14:00)
[2018-08-19] MEDS ORDERED: METOPROLOL TARTRATE INJ 5 MG/5 ML AMPUL IVP ONE (14:00)
[2018-08-19] MEDS ORDERED: IV NS 0.9% 500 ML IV PRN (14:00)
[2018-08-19] MEDS ORDERED: METOPROLOL TARTRATE INJ 5 MG/5 ML AMPUL ONE ×4 (14:07→14:52)
[2018-08-19] MEDS ORDERED: NITROGLYCERIN 0.4 MG/TAB BOTTLE ONE (14:30)
--- NOTE | 2018-08-19 15:20 | NUR ---
ICU/RN: Pt s/p CTA; difficult for pt to follow directions, forgetful; max dose of metoprolol given; nitro given per protocol. Tolerated procedure well. Sent back to room in stable condition.
--- NOTE | 2018-08-19 16:17 | NUR ---
PER DR. BLACKMON, NO EGD/COLONOSCOPY, ORDER FOR FARHEEN. Addendum: 08/19/18 at 1831 by KIM WHITE RN CHANG ORDERED PER DR. BLACKMON
--- NOTE | 2018-08-19 16:59 | NUR ---
PATIENT PULLED OUT PICC LINE. SITE CLEANED, NO BLEEDING AT THIS TIME, COVERED WITH DRESSING. DR. MILLARD NOTIFIED. Addendum: 08/19/18 at 1825 by KIM WHITE RN RESTRAINTS APPLIED.
[2018-08-19] MEDS: LIPASE/PROTEASE/AMYLASE 1 EACH CAPSULE.DR PO SCH (17:20)
--- NOTE | 2018-08-19 17:49 | NUR ---
DR. GILMORE NOTIFIED OF CT ANGIO RESULTS. NO NEW ORDERS RECEIVED
[2018-08-19 20:00] VITALS: BP 128/73
[2018-08-19 20:17] VITALS: BP 128/73
[2018-08-20 04:00] VITALS: BP 132/86
[2018-08-20 04:11] VITALS: BP 132/86
[2018-08-20] MEDS: HYDROCODONE/APAP 5/325MG 1 EACH TABLET PO PRN ×2 (05:13→11:35)
[2018-08-20] MEDS: METRONIDAZOLE 500MG/ NS 100ML 500 MG in PREMIX 1 EA IV SCH ×3 (05:14→21:49)
[2018-08-20] MEDS: VANCOMYCIN HCL 125 MG/2.5 ML ORAL.SUSP PO SCH ×3 (05:14→17:15)
[2018-08-20 06:31] LABS: EOSINOPHILS % (AUTO) 0.7 % (0.0-6.0); HEMATOCRIT 37 % (39-51); HEMOGLOBIN 12.2 g/dL (13.5-17.5); LYMPHOCYTES # (AUTO) 1.3 /CMM (0.8-4.8); LYMPHOCYTES % (AUTO) 15.4 % (20.0-44.0); MEAN CORPUSCULAR HGB CONC 33 g/dl (31.0-36.0); MEAN CORPUSCULAR VOLUME 87 fL (80-96); MONOCYTES # (AUTO) 0.9 /CMM (0.1-1.30); MONOCYTES % (AUTO) 10.4 % (2.0-12.0); NEUTROPHILS # (AUTO) 6.2 /CMM (1.8-8.9); NEUTROPHILS % (AUTO) 73.5 % (43.0-81.0); PLATELET COUNT (AUTO) 299 /CMM (150-450); RED BLOOD CELL COUNT(AUTO) 4.23 MIL/uL (4.5-6.0); WHITE BLOOD COUNT (AUTO) 8.5 K/uL (4.3-11.0)
[2018-08-20 06:58] LABS: CALCIUM, SERUM 7.6 mg/dL (8.5-10.1); CARBON DIOXIDE 27 mmol/L (21-32); CHLORIDE 98 mmol/L (98-107); CREATININE 0.5 mg/dL (0.6-1.3); GLUCOSE 92 mg/dL (74-106); MAGNESIUM 2.1 mg/dL (1.8-2.4); PHOSPHORUS 2.3 mg/dL (2.5-4.9); POTASSIUM 3.8 mmol/L (3.5-5.1); SODIUM SERUM 130 mmol/L (136-145); UREA NITROGEN, BLOOD 11 mg/dL (7-18)
[2018-08-20] MEDS: IPRATROPIUM NEB FS 0.5 MG/2.5 ML AMPUL.NEB NEB PRN ×2 (07:25→15:45)
[2018-08-20] MEDS: ACETYLCYSTEINE 10% SOLN 400 MG/4 ML VIAL NEB SCH ×3 (07:25→23:30)
[2018-08-20 08:00] VITALS: BP 107/68
[2018-08-20] MEDS: VALPROIC ACID 250 MG/5 ML UDC PO SCH ×4 (08:05→21:49)
[2018-08-20] MEDS: HYDROCORTISONE SOD SUCCINATE 100 MG/2 ML VIAL IV SCH ×2 (08:06→17:15)
[2018-08-20] MEDS: LIPASE/PROTEASE/AMYLASE 1 EACH CAPSULE.DR PO SCH ×3 (08:06→17:15)
[2018-08-20] MEDS: ASPIRIN 81 MG TAB.CHEW PO SCH (08:06)
[2018-08-20] MEDS: ENOXAPARIN SODIUM 40 MG/0.4 ML DISP.SYRIN SQ SCH (08:07)
--- NOTE | 2018-08-20 09:24 | NUR ---
ORDERS RECEIVED FOR IV LASIX. DR. GILMORE AWARE OF TOTAL URINE OUTPUT FOR PAST 24HRS BEING 3,525ML
[2018-08-20] MEDS: POTASSIUM CL. PREMIX PERIPHER. 50 ML IV SCH ×2 (09:52→11:35)
[2018-08-20] MEDS ORDERED: FUROSEMIDE 20 MG/2 ML VIAL IV ONE (10:00)
--- NOTE | 2018-08-20 10:15 | NUR ---
CONSENT GIVEN VIA PHONE BY BENJAMIN MILLER, WITNESSED BY TWO RNs, PLACED IN CHART Addendum: 08/20/18 at 1039 by KIM WHITE RN FOR STRESS TEST TOMORROW AM
[2018-08-20] MEDS ORDERED: NEUTRA PHOS 1 POWD.PACKET PO ONE (11:00)
[2018-08-20 11:13] LABS: OSMOLALITY,URINE 539 mOS/kg (340-1090)
[2018-08-20 11:18] LABS: URINE SODIUM, RANDOM 183 mmol/l (40-220)
--- NOTE | 2018-08-20 11:42 | NUR ---
DR. FREEMAN German AWARE OF SODIUM LEVELS
[2018-08-20 16:00] VITALS: BP 93/53
--- NOTE | 2018-08-20 19:20 | NUR ---
RN M/S NOTE PT IS AOX2, RESTING WITH HOB ELEVATED, WITH CONFUSION, ON ROOM AIR, NICHOLE SOFT WRIST RESTRAINTS, SKIN IS INTACT, NO REDNESS, NO S/SX OF CARDIAC OR RESPIRATORY DISTRESS, L HAND# 18G SL, PATENT FLUSHING WELL, SKIN KEPT CLEAN AND DRY, SAFETY MAINTAINED AT ALL TIMES, BED IN LOW LOCKED POSITION, CALL LIGHT WITHIN REACH, WILL CONTINUE TO MONITOR FOR ANY CHANGES.
[2018-08-20 20:00] VITALS: BP 111/59
[2018-08-21] MEDS: VANCOMYCIN HCL 125 MG/2.5 ML ORAL.SUSP PO SCH ×5 (00:51→23:30)
[2018-08-21 04:00] VITALS: BP 114/66
[2018-08-21] MEDS: METRONIDAZOLE 500MG/ NS 100ML 500 MG in PREMIX 1 EA IV SCH ×3 (05:26→21:37)
--- NOTE | 2018-08-21 07:00 | NUR ---
MS RN OPENING NOTES RECEIVED PT LYING ON BED WITH B/L WRIST SOFT RESTRAINT.ALERT/ORIENTED X.ON ROOM AIR,TOLERATING WELL.NO SOB AND ACUTE DISTRESS NOTED.ON NPO FOR STRESS TEST.IV LINE IS ON LEFT HAND G 18,SL.SITE IS CLEAN,DRY AND INTACT.NO INFILTRATION NOTED.BED IS IN LOW POSITION AND LOCKED,CALL LIGHT IS WITHIN REACH.WILL CONTINUE TO MONITOR THE PT CLOSELY.
[2018-08-21 07:09] LABS: MAGNESIUM 2.2 mg/dL (1.8-2.4); PHOSPHORUS 2.8 mg/dL (2.5-4.9)
[2018-08-21 07:21] LABS: BASOPHILS % (AUTO) 0.3 % (0.0-2.0); EOSINOPHILS % (AUTO) 0.9 % (0.0-6.0); HEMATOCRIT 42 % (39-51); HEMOGLOBIN 13.7 g/dL (13.5-17.5); LYMPHOCYTES # (AUTO) 1.7 /CMM (0.8-4.8); LYMPHOCYTES % (AUTO) 21.8 % (20.0-44.0); MEAN CORPUSCULAR HGB CONC 33 g/dl (31.0-36.0); MEAN CORPUSCULAR VOLUME 88 fL (80-96); MONOCYTES % (AUTO) 13.2 % (2.0-12.0); NEUTROPHILS # (AUTO) 4.9 /CMM (1.8-8.9); NEUTROPHILS % (AUTO) 63.8 % (43.0-81.0); PLATELET COUNT (AUTO) 306 /CMM (150-450); RED BLOOD CELL COUNT(AUTO) 4.73 MIL/uL (4.5-6.0); WHITE BLOOD COUNT (AUTO) 7.6 K/uL (4.3-11.0)
[2018-08-21 08:00] VITALS: BP 119/59
[2018-08-21] MEDS ORDERED: REGADENOSON 0.4 MG/5 ML DISP.SYRIN IVP ONE (08:00)
[2018-08-21] MEDS: ACETYLCYSTEINE 10% SOLN 400 MG/4 ML VIAL NEB SCH ×3 (09:10→23:07)
[2018-08-21] MEDS: HYDROCORTISONE SOD SUCCINATE 100 MG/2 ML VIAL IV SCH ×2 (10:03→17:14)
[2018-08-21] MEDS: VALPROIC ACID 250 MG/5 ML UDC PO SCH ×4 (10:03→21:37)
[2018-08-21] MEDS: ASPIRIN 81 MG TAB.CHEW PO SCH (10:03)
[2018-08-21] MEDS: LIPASE/PROTEASE/AMYLASE 1 EACH CAPSULE.DR PO SCH ×3 (10:04→17:14)
[2018-08-21] MEDS: ENOXAPARIN SODIUM 40 MG/0.4 ML DISP.SYRIN SQ SCH (10:05)
[2018-08-21] MEDS: IPRATROPIUM NEB FS 0.5 MG/2.5 ML AMPUL.NEB NEB PRN (14:38)
[2018-08-21 16:00] VITALS: BP 115/69
--- NOTE | 2018-08-21 18:30 | NUR ---
MS RN CLOSING NOTES PT IS LYING ON BED WITH B/L SOFT WRIST RESTRAINTS.RESPIRATION IS EVEN AND NONLABORED.ALL DUE MEDS ARE GIVEN.NO SOB AND ACUTE DISTRESS NOTED.IV LINE IS INTACT.ENDORSING TO CNC PROGRAMMER RN FOR CODIE.
--- NOTE | 2018-08-21 19:20 | NUR ---
MS/RN NOTES RECEIVED PT. LYING IN BED. PT. IS RESTING AND EASILY AROUSABLE TO NAME. PT. IS AWAKE, ALERT AND ORIENTED X2. BREATHING EVEN AND UNLABORED ON ROOM AIR. NO SOB, RESPIRATORY DISTRESS OR COMPLAINTS OF PAIN NOTED AT THIS TIME. PT. WITH LEFT HAND 18 GAUGE IV SALINE LOCK PRESENT, PATENT AND INTACT. PT. WITH BILATERAL SOFT WRIST RESTRAINTS PRESENT AND INTACT. CIRCULATION CHECK DONE. PT. WITH BRYAN CATHETER PRESENT, PATENT AND INTACT DRAINING YELLOW URINE. ISOLATION AND SAFETY PRECAUTIONS IMPLEMENTED AND IN PLACE. BED LOCKED AND IN LOWEST POSITION, SIDE RAILS UP X2, BED ALARM ON, CALL LIGHT WITHIN REACH, WILL CONTINUE TO MONITOR.
[2018-08-21 20:00] VITALS: BP 105/53
--- NOTE | 2018-08-21 23:37 | NUR ---
MS/RN NOTES GAVE REPORT TO PABLO LEO AND ENDORSED PT. TO HER FOR CONTINUITY OF CARE.
--- NOTE | 2018-08-21 23:37 | NUR ---
MS RN NOTE RECEIVED MIDSHIFT REPORT FROM PABLO FRAIRE. PT IN STABLE CONDITION A&O X 1-2. CURRENTLY IN BED SLEEPING. ON RA, SATURATION STABLE. NO SIGNS OF SOB OR DISTRESS NO INDICATIONS OF PAIN. IV IN L HAND #[address] WITH ADEQUATE URINE DRAINING. ALL CURRENT NEEDS ATTENDED TO. BED LOW, LOCKED, UPPER RAILS UP, ISOLATIONS PRECAUTIONS IN PLACE, PT REPOSITIONED PER UNIT PROTOCOL, AND CALL LIGHT WITHIN REACH. WILL CONT TO MONITOR.
[2018-08-22 04:00] VITALS: BP 111/61
[2018-08-22] MEDS: VANCOMYCIN HCL 125 MG/2.5 ML ORAL.SUSP PO SCH ×3 (05:12→17:01)
[2018-08-22] MEDS: METRONIDAZOLE 500MG/ NS 100ML 500 MG in PREMIX 1 EA IV SCH ×3 (05:13→21:27)
--- NOTE | 2018-08-22 06:26 | NUR ---
MS RN NOTE PT IN STABLE CONDITION A&O X 1-2. CURRENTLY IN BED, RESTING. ON RA, SATURATION STABLE. NO SIGNS OF SOB OR DISTRESS NO INDICATIONS OF PAIN. IV IN L HAND #[address] BR[address]AN IN PLACE WITH ADEQUATE URINE DRAINING. ALL CURRENT NEEDS ATTENDED TO. BED LOW, LOCKED, UPPER RAILS UP, ISOLATIONS PRECAUTIONS IN PLACE, PT REPOSITIONED PER UNIT PROTOCOL, AND CALL LIGHT WITHIN REACH. WILL CONT TO MONITOR AND ENDORSE TO NEXT SHIFT FOR CODIE.
[2018-08-22 06:57] LABS: BASOPHILS % (AUTO) 0.2 % (0.0-2.0); HEMATOCRIT 39 % (39-51); HEMOGLOBIN 12.9 g/dL (13.5-17.5); LYMPHOCYTES # (AUTO) 1.2 /CMM (0.8-4.8); LYMPHOCYTES % (AUTO) 14.5 % (20.0-44.0); MEAN CORPUSCULAR HGB CONC 33 g/dl (31.0-36.0); MEAN CORPUSCULAR VOLUME 87 fL (80-96); MONOCYTES # (AUTO) 0.6 /CMM (0.1-1.30); MONOCYTES % (AUTO) 7.4 % (2.0-12.0); NEUTROPHILS # (AUTO) 6.5 /CMM (1.8-8.9); NEUTROPHILS % (AUTO) 76.9 % (43.0-81.0); PLATELET COUNT (AUTO) 327 /CMM (150-450); WHITE BLOOD COUNT (AUTO) 8.4 K/uL (4.3-11.0)
--- NOTE | 2018-08-22 07:05 | NUR ---
MS RN OPENING NOTES RECEIVED PT LYING ON BED WITH B/L WRIST SOFT RESTRAINT.ALERT/ORIENTED X1,STAYING CALM AND NO RESTLESSNESS NOTED.ON ROOM AIR,TOLERATING WELL.NO SOB AND ACUTE DISTRESS NOTED.BRYAN CATHETER IS IN PLACE WITH CLOUDY NII COLOR URINE.IV LINE IS ON LEFT HAND G 18,SL.SITE IS CLEAN,DRY AND INTACT.NO INFILTRATION NOTED.BED IS IN LOW POSITION AND LOCKED,CALL LIGHT IS WITHIN REACH.WILL CONTINUE TO MONITOR THE PT CLOSELY.
[2018-08-22 07:11] LABS: CALCIUM, SERUM 7.9 mg/dL (8.5-10.1); CARBON DIOXIDE 31 mmol/L (21-32); CHLORIDE 97 mmol/L (98-107); CREATININE 0.9 mg/dL (0.6-1.3); GLUCOSE 98 mg/dL (74-106); MAGNESIUM 2.1 mg/dL (1.8-2.4); PHOSPHORUS 3.2 mg/dL (2.5-4.9); POTASSIUM 3.7 mmol/L (3.5-5.1); SODIUM SERUM 132 mmol/L (136-145); UREA NITROGEN, BLOOD 14 mg/dL (7-18)
[2018-08-22] MEDS: ACETYLCYSTEINE 10% SOLN 400 MG/4 ML VIAL NEB SCH ×2 (07:45→16:22)
[2018-08-22] MEDS: IPRATROPIUM NEB FS 0.5 MG/2.5 ML AMPUL.NEB NEB PRN ×2 (07:46→16:22)
[2018-08-22 08:00] VITALS: BP 98/63
[2018-08-22] MEDS: HYDROCORTISONE SOD SUCCINATE 100 MG/2 ML VIAL IV SCH ×2 (09:09→16:56)
[2018-08-22] MEDS: LIPASE/PROTEASE/AMYLASE 1 EACH CAPSULE.DR PO SCH ×3 (09:09→17:01)
[2018-08-22] MEDS: ASPIRIN 81 MG TAB.CHEW PO SCH (09:09)
[2018-08-22] MEDS: VALPROIC ACID 250 MG/5 ML UDC PO SCH ×4 (09:09→21:27)
[2018-08-22] MEDS: ENOXAPARIN SODIUM 40 MG/0.4 ML DISP.SYRIN SQ SCH (09:41)
[2018-08-22 16:00] VITALS: BP 115/60
--- NOTE | 2018-08-22 18:40 | NUR ---
MS RN CLOSING NOTES PT IS LYING ON BED WITH ROOM AIR,TOLERATING WELL.NO SOB AND ACUTE DISTRESS NOTED.IV LINE IS IN PLACE,SITE IS C/D/I.ALL THE DUE MEDS ARE GIVEN.RESPIRATION IS EVEN AND NONLABORED.ENDORSING TO FILTERS ASSEMBLER RN FOR CODIE.
--- NOTE | 2018-08-22 19:35 | NUR ---
MS RN OPENING NOTES, RECEIVED PATIENT LYING ON BED WITH B/L WRIST SOFT RESTRAINT IN PLACED. A/O TO SELF, NO SOB/ACUTE DISTRESS NOTED, NO AGITATION OR NO RESTLESSNESS EPISODES NOTED AT THIS TIME, ON ROOM AIR,TOLERATING WELL, BRYAN CATHETER IS IN PLACE WITH CLOUDY NII COLOR URINE, PATENCY INTACT, IV LEFT HAND G 18, S/L, PATENT AND INTACT, BED LOCKED AND LOW POSITION CALL LIGHT WITHIN REACH, WILL CONTINUE TO MONITOR CLOSELY.
[2018-08-22 20:00] VITALS: BP_SYST 114; BP_SYST 98; BP_DIAS 63; BP_DIAS 85
[2018-08-22 20:43] VITALS: BP 114/85
[2018-08-23] MEDS: ACETYLCYSTEINE 10% SOLN 400 MG/4 ML VIAL NEB SCH ×4 (00:17→23:13)
[2018-08-23 04:00] VITALS: BP 110/52
[2018-08-23] MEDS: METRONIDAZOLE 500MG/ NS 100ML 500 MG in PREMIX 1 EA IV SCH (06:17)
[2018-08-23] MEDS: VANCOMYCIN HCL 125 MG/2.5 ML ORAL.SUSP PO SCH ×4 (06:18→17:09)
--- NOTE | 2018-08-23 06:47 | NUR ---
RN NOTES, NO SIGNIFICANT CHANGE IN CONDITION THROUGHOUT THE NIGHT, WILL ENDORSE CONTINUITY OF CARE TO ONCOMING NURSE.
[2018-08-23 07:55] LABS: BASOPHILS % (AUTO) 0.1 % (0.0-2.0); EOSINOPHILS % (AUTO) 0.9 % (0.0-6.0); HEMATOCRIT 42 % (39-51); HEMOGLOBIN 13.7 g/dL (13.5-17.5); LYMPHOCYTES # (AUTO) 1.1 /CMM (0.8-4.8); MEAN CORPUSCULAR HGB CONC 33 g/dl (31.0-36.0); MEAN CORPUSCULAR VOLUME 88 fL (80-96); MONOCYTES # (AUTO) 0.7 /CMM (0.1-1.30); MONOCYTES % (AUTO) 7.4 % (2.0-12.0); NEUTROPHILS # (AUTO) 7.6 /CMM (1.8-8.9); NEUTROPHILS % (AUTO) 79.6 % (43.0-81.0); PLATELET COUNT (AUTO) 333 /CMM (150-450); RED BLOOD CELL COUNT(AUTO) 4.75 MIL/uL (4.5-6.0); WHITE BLOOD COUNT (AUTO) 9.6 K/uL (4.3-11.0)
[2018-08-23 08:00] VITALS: BP 117/65
[2018-08-23 08:06] LABS: CALCIUM, SERUM 8.1 mg/dL (8.5-10.1); CHLORIDE 97 mmol/L (98-107); CREATININE 0.8 mg/dL (0.6-1.3); GLUCOSE 93 mg/dL (74-106); MAGNESIUM 2.3 mg/dL (1.8-2.4); PHOSPHORUS 3.1 mg/dL (2.5-4.9); POTASSIUM 3.6 mmol/L (3.5-5.1); SODIUM SERUM 132 mmol/L (136-145); UREA NITROGEN, BLOOD 13 mg/dL (7-18)
[2018-08-23 08:23] LABS: CARBON DIOXIDE 29 mmol/L (21-32)
[2018-08-23] MEDS: ENOXAPARIN SODIUM 40 MG/0.4 ML DISP.SYRIN SQ SCH (09:08)
[2018-08-23] MEDS: HYDROCORTISONE SOD SUCCINATE 100 MG/2 ML VIAL IV SCH ×2 (09:08→17:08)
[2018-08-23] MEDS: VALPROIC ACID 250 MG/5 ML UDC PO SCH ×4 (09:08→21:45)
[2018-08-23] MEDS: ASPIRIN 81 MG TAB.CHEW PO SCH (09:10)
[2018-08-23] MEDS: LIPASE/PROTEASE/AMYLASE 1 EACH CAPSULE.DR PO SCH ×3 (09:13→17:08)
[2018-08-23] MEDS: CARVEDILOL 3.125 MG TABLET PO SCH ×2 (11:25→21:00)
[2018-08-23 16:00] VITALS: BP 123/54
--- NOTE | 2018-08-23 19:30 | NUR ---
MS RN OPENING NOTES RECEIVED BEDSIDE REPORT FROM AM RN. PATIENT IN BED WITH B/L WRIST SOFT RESTRAINT IN PLACED, PER REPORT PT PULLING IV LINES. A/O X2, ON JONELLE SASHA, NO SOB/ACUTE DISTRESS NOTED, DENIES PAIN AT THIS TIME. NOTED AT THIS TIME. BRYAN CATHETER IS IN PLACE, OFF THE FLOOR, WITH CLOUDY NII COLOR URINE NOTED. IV SITE LEFT HAND G 18, S/L, PATENT AND INTACT. SAFETY MEASURES IN PLACE; BED LOCKED AND LOWEST POSITION, CALL LIGHT WITHIN REACH, WILL CONTINUE TO MONITOR PT CLOSELY.
[2018-08-23 20:00] VITALS: BP 100/57
[2018-08-23] MEDS: IPRATROPIUM NEB FS 0.5 MG/2.5 ML AMPUL.NEB NEB PRN (23:13)
[2018-08-24] MEDS: VANCOMYCIN HCL 125 MG/2.5 ML ORAL.SUSP PO SCH ×5 (00:27→23:00)
--- NOTE | 2018-08-24 01:40 | NUR ---
MS RN NOTES PATIENT SLEEPING, REMOVED BILATERAL SOFT RESTRAINTS FOR NOW. WILL CONT TO MONITOR PT CLOSELY.
[2018-08-24 04:00] VITALS: BP 110/55
--- NOTE | 2018-08-24 06:47 | NUR ---
MS RN CLOSING NOTES PATIENT SLEEPING IN BED, BUT EASY TO AROUSE. A/O X2, ON ROOM AIR, NO SOB/ACUTE DISTRESS NOTED, DENIES PAIN AT THIS TIME. BRYAN CATHETER IS IN PLACE, OFF THE FLOOR, WITH CLOUDY TEA COLOR URINE NOTED. IV SITE LEFT HAND G 18, S/L, PATENT AND INTACT. REPOSITIONED Q2H. SAFETY MEASURES MAINTAINED; BED LOCKED AND LOWEST POSITION, CALL LIGHT WITHIN REACH. NO ACUTE CHANGES THROUGHOUT SHIFT. ALL MD ORDERS ATTENDED. WILL ENDORSE TO AM NURSE FOR CODIE.
--- NOTE | 2018-08-24 07:34 | NUR ---
MS RN OPENING NOTES RECEIVED PATIENT IN BED SLEEPING, A/O X2, ON ROOM AIR, NO SOB OR ACUTE DISTRESS NOTED, DENIES PAIN AT THIS TIME. BRYAN CATHETER INTACT WITH WITH CLOUDY NII COLOR URINE NOTED. L HAND IV # 18 INTACT AND PATENT . PATIIENT CLEAN AND DRY. SAFETY MEASURES IN PLACE; BED LOCKED AND LOWEST POSITION, CALL LIGHT WITHIN REACH, WILL CONTINUE TO MONITOR.
[2018-08-24 08:00] VITALS: BP 121/63
[2018-08-24] MEDS: ACETYLCYSTEINE 10% SOLN 400 MG/4 ML VIAL NEB SCH ×3 (08:27→23:13)
[2018-08-24] MEDS: ASPIRIN 81 MG TAB.CHEW PO SCH (09:44)
[2018-08-24] MEDS: VALPROIC ACID 250 MG/5 ML UDC PO SCH ×4 (09:44→22:33)
[2018-08-24] MEDS: HYDROCORTISONE SOD SUCCINATE 100 MG/2 ML VIAL IV SCH ×2 (09:45→16:27)
[2018-08-24] MEDS: CARVEDILOL 3.125 MG TABLET PO SCH ×2 (09:45→21:00)
[2018-08-24] MEDS: ENOXAPARIN SODIUM 40 MG/0.4 ML DISP.SYRIN SQ SCH (09:48)
[2018-08-24] MEDS: LIPASE/PROTEASE/AMYLASE 1 EACH CAPSULE.DR PO SCH ×3 (09:49→18:25)
[2018-08-24 11:01] LABS: BASOPHILS # (AUTO) 0.1 /CMM (0.0-0.2); BASOPHILS % (AUTO) 0.4 % (0.0-2.0); EOSINOPHILS % (AUTO) 0.2 % (0.0-6.0); HEMATOCRIT 41 % (39-51); HEMOGLOBIN 13.6 g/dL (13.5-17.5); LYMPHOCYTES # (AUTO) 1.1 /CMM (0.8-4.8); LYMPHOCYTES % (AUTO) 8.3 % (20.0-44.0); MEAN CORPUSCULAR HGB CONC 33 g/dl (31.0-36.0); MEAN CORPUSCULAR VOLUME 88 fL (80-96); MONOCYTES # (AUTO) 0.8 /CMM (0.1-1.30); NEUTROPHILS # (AUTO) 11.5 /CMM (1.8-8.9); NEUTROPHILS % (AUTO) 85.1 % (43.0-81.0); PLATELET COUNT (AUTO) 323 /CMM (150-450); RED BLOOD CELL COUNT(AUTO) 4.72 MIL/uL (4.5-6.0); WHITE BLOOD COUNT (AUTO) 13.5 K/uL (4.3-11.0)
[2018-08-24 11:17] LABS: CALCIUM, SERUM 8.3 mg/dL (8.5-10.1); CARBON DIOXIDE 32 mmol/L (21-32); CHLORIDE 100 mmol/L (98-107); CREATININE 0.8 mg/dL (0.6-1.3); GLUCOSE 102 mg/dL (74-106); MAGNESIUM 2.1 mg/dL (1.8-2.4); PHOSPHORUS 3.1 mg/dL (2.5-4.9); POTASSIUM 3.4 mmol/L (3.5-5.1); SODIUM SERUM 137 mmol/L (136-145); UREA NITROGEN, BLOOD 16 mg/dL (7-18)
--- NOTE | 2018-08-24 12:26 | NUR ---
MS RN NOTE BRYAN CATHETER REMOVED PER . URINE SAMPLE COLLECTED AND SENT TO LAB PER .
[2018-08-24 13:10] LABS: APPEARANCE,URINE CLOUDY (CLEAR); BILIRUBIN,URINE NEGATIVE (NEGATIVE); BLOOD, URINE 3+ Ery/uL (NEGATIVE); COLOR,URINE ORANGE (YELLOW); KETONES,URINE NEGATIVE (NEGATIVE); LEUKOCYTE ESTERASE ,URINE 3+ (NEGATIVE); NITRITE, URINE POSITIVE (NEGATIVE); PH,URINE 8.5 (5.0-8.0); PROTEIN,URINE 2+ mg/dl (NEGATIVE); UGLUCOSE NEGATIVE (NEGATIVE); UROBILINOGEN,URINE 0.2 EU/dL (0.2)
[2018-08-24 13:18] LABS: BACTERIA,URINE Few /HPF (None Seen); MUCUS,URINE Moderate /LPF (None Seen); RBC,URINE TOO NUMEROUS TO COUN /HPF (0-2); SQUAMOUS EPITHELIAL CELL,UR 0-2 /HPF (None Seen); URINE AMORPHOUS URATE Moderate /HPF (None Seen); WBC,URINE 81-100 /HPF (0-3)
[2018-08-24 16:00] VITALS: BP 100/53
--- NOTE | 2018-08-24 19:24 | NUR ---
MS RN CLOSING NOTES PATIENT IN BED SLEEPING, A/O X2, ON ROOM AIR, NO SOB OR ACUTE DISTRESS NOTED, DENIES PAIN AT THIS TIME. BRYAN CATHETER REMOVED TODAY PER MD. URINE CX AND UA ORDERED. L HAND IV # 18 INTACT AND PATENT . PATIENT CLEAN AND DRY. SAFETY MEASURES IN PLACE; BED LOCKED AND LOWEST POSITION, CALL LIGHT WITHIN REACH, CARE ENDORSED TO ELECTRICAL ENGINEERING DIRECTOR RN. .
--- NOTE | 2018-08-24 19:28 | NUR ---
MS RN NOTE PATIENT REPORT GIVEN BEDSIDE. PATIENT IN BED HIGH FOWLERS SIDE RAILS UP X 2. PATIENT A/O X 2 NO S/S OF DISTRESS. PATIENT BREATHING EVEN AND UNLABORED NO S.S OF RESP DISTRESS. PATIENT DENIES CHEST PAIN, PAIN, OR DISCOMFORT. PATIENT APPEARS STABLE AT THIS TIME. PATIENT HAND 18 G SL PATENT AND INTACT. RN WILL CONTINUE TO MONITOR FOR CHANGES. SAFETY PRECAUTIONS IN PLACE, CALL LIGHT WITHIN REACH, BED IN LOWEST LOCKED POSITION.
--- NOTE | 2018-08-24 19:54 | NUR ---
MS RN NOTE PATIENT NOTED TO HAVE NO SELF INJURIOUS OR OBSTRUCTIVE BEHAVIOR. RESTRAINTS CURRENTLY OFF AT THIS TIME.
[2018-08-24 20:00] VITALS: BP 107/56
--- NOTE | 2018-08-24 21:13 | NUR ---
MS RN NOTE HOLDING CARVEDILOL PER MD ORDER. PATIENT SBP LESS THAN 105. PATIENTS SBP 103 HR IN THE 6O'S.
[2018-08-24] MEDS ORDERED: CEFEPIME 1 GM VIAL ONE (23:59)
[2018-08-25 04:00] VITALS: BP 106/55
[2018-08-25] MEDS: CEFEPIME 1 GM in IV D5W 50 ML IV SCH ×5 (04:52→15:17)
--- NOTE | 2018-08-25 04:52 | NUR ---
MS RN NOTE PATIENT'S NEW ORDER OF CEFEPIME AT 0500 UNABLE TO BE GIVEN DUE TO UNAVAILABILITY OF DRUG IN THE NIGHT LOCKER. PER NURSING POWDER PRESS OPERATOR [id number], THERE IS NO CEFEPIME IN THE NIGHT LOCKER ALL THREE VIALS WERE DISPENSED. VACCINE CUSTOMER REPRESENTATIVE AND MD AWARE NO NEW ORDERS GIVEN.
--- NOTE | 2018-08-25 05:15 | NUR ---
MS RN NOTE ORE TRIMMER NEGRETTE ORDERED TO TAKE MISSED DOSE OF CEFEPIME SOON PHARMACY IS ABLE TO MAKE A NEW DOSE.
[2018-08-25] MEDS: VANCOMYCIN HCL 125 MG/2.5 ML ORAL.SUSP PO SCH ×3 (05:47→17:09)
[2018-08-25 06:30] LABS: BASOPHILS % (AUTO) 0.1 % (0.0-2.0); HEMATOCRIT 37 % (39-51); HEMOGLOBIN 12.1 g/dL (13.5-17.5); LYMPHOCYTES # (AUTO) 0.9 /CMM (0.8-4.8); MEAN CORPUSCULAR HGB CONC 33 g/dl (31.0-36.0); MEAN CORPUSCULAR VOLUME 87 fL (80-96); MONOCYTES % (AUTO) 5.6 % (2.0-12.0); NEUTROPHILS # (AUTO) 15.8 /CMM (1.8-8.9); NEUTROPHILS % (AUTO) 89.3 % (43.0-81.0); PLATELET COUNT (AUTO) 291 /CMM (150-450); WHITE BLOOD COUNT (AUTO) 17.7 K/uL (4.3-11.0)
[2018-08-25 06:59] LABS: CALCIUM, SERUM 8.1 mg/dL (8.5-10.1); CARBON DIOXIDE 29 mmol/L (21-32); CHLORIDE 99 mmol/L (98-107); CREATININE 0.7 mg/dL (0.6-1.3); GLUCOSE 107 mg/dL (74-106); MAGNESIUM 2.1 mg/dL (1.8-2.4); PHOSPHORUS 3.2 mg/dL (2.5-4.9); POTASSIUM 3.5 mmol/L (3.5-5.1); SODIUM SERUM 134 mmol/L (136-145); UREA NITROGEN, BLOOD 17 mg/dL (7-18)
[2018-08-25] MEDS: IPRATROPIUM NEB FS 0.5 MG/2.5 ML AMPUL.NEB NEB PRN ×2 (07:25→15:22)
[2018-08-25] MEDS: ACETYLCYSTEINE 10% SOLN 400 MG/4 ML VIAL NEB SCH ×3 (07:25→22:49)
--- NOTE | 2018-08-25 07:30 | NUR ---
RN OPENING NOTES RECEIVED PATIENT IN BED SLEEPING COMFORTABLY. EASILY AROUSABLE. NO PAIN OR ACUTE DISTRESS AT THIS TIME. RESPIRATION EVEN AND UNLABORED. SKIN IS DRY WARM TO TOUCH. PATIENT APPEARS STABLE AT THIS TIME. PATIENT NOTED WITH LEFT HAND #18G SL. PATENT AND INTACT. FLUSHING WELL. ALL NEEDS ANTICIPATED. CALL LIGHT WITHIN REACH. PLAN OF CARE DISCUSSED. BED LOCKED AND IN LOWEST POSITION. SAFETY MAINTAINED. WILL CONTINUE TO MONITOR CLOSELY.
[2018-08-25 08:00] VITALS: BP 111/60
[2018-08-25] MEDS ORDERED: CEFEPIME 1 GM in IV D5W 50 ML IV ONE (08:00)
[2018-08-25] MEDS: ENOXAPARIN SODIUM 40 MG/0.4 ML DISP.SYRIN SQ SCH (08:27)
[2018-08-25] MEDS: VALPROIC ACID 250 MG/5 ML UDC PO SCH ×4 (08:34→22:28)
[2018-08-25] MEDS: ASPIRIN 81 MG TAB.CHEW PO SCH (08:34)
[2018-08-25] MEDS: LIPASE/PROTEASE/AMYLASE 1 EACH CAPSULE.DR PO SCH ×3 (08:34→17:09)
[2018-08-25] MEDS: CARVEDILOL 3.125 MG TABLET PO SCH ×2 (08:34→21:00)
[2018-08-25] MEDS: HYDROCORTISONE SOD SUCCINATE 100 MG/2 ML VIAL IV SCH ×2 (08:34→17:09)
[2018-08-25 16:00] VITALS: BP_SYST 105; BP_SYST 90; BP_DIAS 51; BP_DIAS 64
--- NOTE | 2018-08-25 19:02 | NUR ---
RN CLOSING NOTES PATIENT IN BED SLEEPING COMFORTABLY. EASILY AROUSABLE. NO PAIN OR ACUTE DISTRESS AT THIS TIME. RESPIRATION EVEN AND UNLABORED. SKIN IS DRY WARM TO TOUCH. PATIENT CONTINUES TO REMAIN IN STABLE CONDITION. PROVIDED SAFETY AND COMFORT. PATIENT NOTED WITH LEFT HAND #18G SL. PATENT AND INTACT. FLUSHING WELL. ALL NEEDS ANTICIPATED. KEPT CLEAN AND DRY. CALL LIGHT WITHIN REACH. BED LOCKED AND IN LOWEST POSITION. WILL CONTINUE TO MONITOR CLOSELY. ENDORSED TO PM NURSE FOR CODIE.
[2018-08-25 20:00] VITALS: BP 95/38
[2018-08-26] MEDS: CEFEPIME 1 GM in IV D5W 50 ML IV SCH ×2 (00:18→08:42)
[2018-08-26] MEDS: VANCOMYCIN HCL 125 MG/2.5 ML ORAL.SUSP PO SCH ×3 (00:18→12:50)
[2018-08-26 04:00] VITALS: BP 98/38
[2018-08-26 06:59] LABS: BASOPHILS % (AUTO) 0.1 % (0.0-2.0); EOSINOPHILS % (AUTO) 0.2 % (0.0-6.0); HEMATOCRIT 37 % (39-51); HEMOGLOBIN 12.1 g/dL (13.5-17.5); LYMPHOCYTES # (AUTO) 1.3 /CMM (0.8-4.8); LYMPHOCYTES % (AUTO) 9.1 % (20.0-44.0); MEAN CORPUSCULAR HGB CONC 33 g/dl (31.0-36.0); MEAN CORPUSCULAR VOLUME 88 fL (80-96); MONOCYTES % (AUTO) 7.1 % (2.0-12.0); NEUTROPHILS # (AUTO) 11.9 /CMM (1.8-8.9); NEUTROPHILS % (AUTO) 83.5 % (43.0-81.0); PLATELET COUNT (AUTO) 228 /CMM (150-450); RED BLOOD CELL COUNT(AUTO) 4.17 MIL/uL (4.5-6.0); WHITE BLOOD COUNT (AUTO) 14.3 K/uL (4.3-11.0)
[2018-08-26 07:24] LABS: CALCIUM, SERUM 8.2 mg/dL (8.5-10.1); CARBON DIOXIDE 29 mmol/L (21-32); CHLORIDE 100 mmol/L (98-107); CREATININE 0.8 mg/dL (0.6-1.3); GLUCOSE 103 mg/dL (74-106); MAGNESIUM 2.3 mg/dL (1.8-2.4); POTASSIUM 3.7 mmol/L (3.5-5.1); SODIUM SERUM 136 mmol/L (136-145); UREA NITROGEN, BLOOD 20 mg/dL (7-18)
[2018-08-26 08:00] VITALS: BP_SYST 104; BP_SYST 106; BP_DIAS 40
[2018-08-26] MEDS: LIPASE/PROTEASE/AMYLASE 1 EACH CAPSULE.DR PO SCH ×2 (08:43→12:49)
[2018-08-26] MEDS: VALPROIC ACID 250 MG/5 ML UDC PO SCH ×2 (08:43→12:49)
[2018-08-26 08:44] VITALS: BP 104/40
[2018-08-26] MEDS: CARVEDILOL 3.125 MG TABLET PO SCH (08:44)
[2018-08-26] MEDS: ASPIRIN 81 MG TAB.CHEW PO SCH (08:44)
[2018-08-26] MEDS: HYDROCORTISONE SOD SUCCINATE 100 MG/2 ML VIAL IV SCH (08:44)
[2018-08-26] MEDS: ENOXAPARIN SODIUM 40 MG/0.4 ML DISP.SYRIN SQ SCH (08:45)
[2018-08-26] MEDS: ACETYLCYSTEINE 10% SOLN 400 MG/4 ML VIAL NEB SCH (09:14)
[2018-08-26] MEDS ORDERED: VALP250S22 PO (10:00)
[2018-08-26] MEDS ORDERED: ENOX40DI SQ (10:00)
[2018-08-26] MEDS ORDERED: ASPI-1169 PO (10:00)
[2018-08-26] MEDS ORDERED: LIPA1CAP27 PO (10:00)
[2018-08-26] MEDS ORDERED: CARV3.122 PO (10:00)
[2018-08-26] MEDS ORDERED: VANC125C11 PO (10:00)
[2018-08-26] MEDS ORDERED: CEFE1FRO IV (10:00)
--- NOTE | 2018-08-26 15:04 | NUR ---
RN D/C NOTE RECEIVED D/C ORDER TO SNF. PATIENT STABLE, NO SOB OR CHEST PAIN. BELONGINGS LIST SIGNED, DENTURES IN MOUTH OF PATIENT. REPORT CALLED TO TORY AT [facility]. PAPERWORK PROVIDED TO AMBULANCE PERSONNEL. NO RANDI. LEFT VIA AMBULANCE @[phone]
== END 2018-08-26 14:40 | DRG 871 ==
LOC: ER 20:32 → ICU 23:08 → TELE1 08-15 14:43 → MEDSG1 08-16 08:46
PROVIDERS: ADMIT Nurse Practitioner Acute Care; ATTEND Student in an Organized Health Care Education/Training Program
PROC: 02HV33Z Insertion of Infusion Device into Superior Vena Cava, Percutaneous Approach (ICD-10-PCS; principal; 2018-08-13)
PROC: B548ZZA Ultrasonography of Superior Vena Cava, Guidance (ICD-10-PCS; 2018-08-13)
DX: A41.9 Sepsis, unspecified organism (principal); J69.0 Pneumonitis due to inhalation of food and vomit; R53.2 Functional quadriplegia; G93.41 Metabolic encephalopathy; E43 Unspecified severe protein-calorie malnutrition; I21.A1 Myocardial infarction type 2; R65.21 Severe sepsis with septic shock; R57.0 Cardiogenic shock; E87.1 Hypo-osmolality and hyponatremia; I50.30 Unspecified diastolic (congestive) heart failure; E44.0 Moderate protein-calorie malnutrition; A04.72 Enterocolitis due to Clostridium difficile, not specified as recurrent; N39.0 Urinary tract infection, site not specified; J98.11 Atelectasis; R18.8 Other ascites; K56.699 Other intestinal obstruction unspecified as to partial versus complete obstruction; G20 Parkinson's disease; E83.42 Hypomagnesemia; E86.0 Dehydration; F41.9 Anxiety disorder, unspecified; E87.6 Hypokalemia; F02.80 Dementia in other diseases classified elsewhere, unspecified severity, without behavioral disturbance, psychotic disturbance, mood disturbance, and anxiety; I27.20 Pulmonary hypertension, unspecified; F20.9 Schizophrenia, unspecified; F31.9 Bipolar disorder, unspecified; R65.20 Severe sepsis without septic shock; E86.1 Hypovolemia; D50.9 Iron deficiency anemia, unspecified; D69.6 Thrombocytopenia, unspecified; F09 Unspecified mental disorder due to known physiological condition; I70.0 Atherosclerosis of aorta; B96.4 Proteus (mirabilis) (morganii) as the cause of diseases classified elsewhere; B96.89 Other specified bacterial agents as the cause of diseases classified elsewhere
CPT/HCPCS: 36415; 36569; 71045-TC; 74018; 75574; 76700-TC; 80048-TC; 80053-TC; 80061-TC; 80076-TC; 80164-TC; 81000-TC; 82272-TC; 82533; 82728-TC; 83540-TC; 83605-TC; 83735-TC; 83935-TC; 84100-TC; 84300-TC; 84439-TC; 84443-TC; 84484-TC; 85025-TC; 85730-TC; 87040-TC; 87045-TC; 87081-TC; 87086-TC; 87186-TC; 89055; 92526; 92611-TC; 93307-TC; 94668-TC; 94760-TC; 94799-TC; 97110-TC; 97112-TC; 97530-TC; A4216; A9502; C1751; G0378; J0692; J1650; J1720; J1940; J2405; J2543; J2785; J2916; J3475; J3480; J3490; J7030; J7040; J7050; J7060; Q9967

== ENCOUNTER 2018-10-09 15:47 | Inpatient (IN) | payer MEDICARE, MEDICAID ==
[~2018-10-09] VITALS: Ht 175.3 cm; Wt 61.7 kg
[~2018-10-09 15:47] MED LIST: ACET325C5 PO; ASPI-1169 PO; ATOR10TA PO; BENZ0.5T43 PO; CARV3.122 PO; CEFE1FRO IV; CRAN450C PO; DIVA500T2 PO; DOCU100C36 PO; ENOX40DI SQ; LIPA1CAP27 PO; MAGN400O6 PO; NA P133E RC; RISP0.2515 PO; VALP250S22 PO; VANC125C11 PO
--- NOTE | 2018-10-09 16:04 | NUR ---
MARLEY, FROM [facility], BROUGHT IN DUE TO FEVER 100.8 F WITH CHILLS SSTARTED THIS MORNING, TO ER BED 7, HOOKED TO MONITOR, RECTAL TEMP AT 104.0F, PATIENT AOx1, NOTICED W PRODUCTIVE COUGH, CHANGED TO GOWN, COOLING MEASURES DONE, AWAITING MD HERNADEZ.
--- NOTE | 2018-10-09 16:24 | NUR ---
DR SHEFFIELD AT BEDSIDE
[2018-10-09] MEDS ORDERED: ACETAMINOPHEN 650 MG/SUPP.RECT RC ONE ×3 (16:30→16:34)
[2018-10-09] MEDS ORDERED: IV NS 0.9% 1,000 ML BAG IV ONE ×2 (16:30→20:00)
[2018-10-09 16:42] LABS: BASOPHILS % (AUTO) 0.4 % (0.0-2.0); EOSINOPHILS % (AUTO) 0.6 % (0.0-6.0); HEMATOCRIT 37 % (39-51); HEMOGLOBIN 12.6 g/dL (13.5-17.5); LYMPHOCYTES # (AUTO) 0.4 /CMM (0.8-4.8); LYMPHOCYTES % (AUTO) 12.1 % (20.0-44.0); MEAN CORPUSCULAR HGB CONC 34 g/dl (31.0-36.0); MEAN CORPUSCULAR VOLUME 87 fL (80-96); MONOCYTES # (AUTO) 0.1 /CMM (0.1-1.30); MONOCYTES % (AUTO) 2.6 % (2.0-12.0); NEUTROPHILS # (AUTO) 2.7 /CMM (1.8-8.9); NEUTROPHILS % (AUTO) 84.3 % (43.0-81.0); PLATELET COUNT (AUTO) 187 /CMM (150-450); RED BLOOD CELL COUNT(AUTO) 4.29 MIL/uL (4.5-6.0); WHITE BLOOD COUNT (AUTO) 3.2 K/uL (4.3-11.0)
[2018-10-09 16:49] LABS: CARBON DIOXIDE 28 mmol/L (21-32); CHLORIDE 101 mmol/L (98-107); CREATININE 0.8 mg/dL (0.6-1.3); GLUCOSE 145 mg/dL (74-106); POTASSIUM 3.2 mmol/L (3.5-5.1); SODIUM SERUM 139 mmol/L (136-145); UREA NITROGEN, BLOOD 18 mg/dL (7-18)
[2018-10-09 16:55] LABS: ALANINE AMINOTRANSFERASE 14 U/L (12-78); ALBUMIN 2.4 g/dL (3.4-5.0); ALKALINE PHOSPHATASE 54 U/L (46-116); ASPARTATE AMINOTRANSFERASE 8 U/L (15-37); BILIRUBIN,DIRECT 0.1 mg/dL (0.0-0.2); BILIRUBIN,TOTAL 0.3 mg/dL (0.2-1.0); TOTAL PROTEIN, SERUM 6.2 g/dL (6.4-8.2)
[2018-10-09 17:08] LABS: APPEARANCE,URINE Clear (CLEAR); BILIRUBIN,URINE Negative (NEGATIVE); BLOOD, URINE Negative Ery/uL (NEGATIVE); COLOR,URINE Yellow (YELLOW); KETONES,URINE Trace (NEGATIVE); LEUKOCYTE ESTERASE ,URINE Negative (NEGATIVE); NITRITE, URINE Negative (NEGATIVE); PH,URINE 5.5 (5.0-8.0); PROTEIN,URINE Negative (NEGATIVE); UGLUCOSE Negative (NEGATIVE)
[2018-10-09] MEDS ORDERED: CEFTRIAXONE 1GM BAG (ER ONLY) 50 ML IV ONE ×2 (17:30→17:37)
--- NOTE | 2018-10-09 17:48 | NUR ---
REPORT GIVEN TO LAWSON RN OF TELE UNIT
[2018-10-09 18:21] LABS: BACTERIA,URINE Rare /HPF (None Seen); RBC,URINE 0-2 /HPF (0-2); SQUAMOUS EPITHELIAL CELL,UR Rare /HPF (None Seen); WBC,URINE 0-2 /HPF (0-3)
--- NOTE | 2018-10-09 18:45 | NUR ---
RN NOTES RECEIVED PATIENT FROM THE ER VIA GURJONATHAN, PATIENT WITH SPONTANEOUS EYE OPENING, ABLE TO TALKED BUT WORDS ARE UNCLEAR. ON ROOM AIR . NOT ON ANY FORM OF DISTRESS, NO INDICATION OF PAIN NOTED. PATIENT CLEANED, SKIN ASSESSMENT DONE: SKIN INTACT. MADE WARMTH AND COMFORTABLE IN BED. VITALS TAKEN AND FOLLOWS BP AT 90/43MMHG, HR AT 94, TEMP AT 98.7. TELEMONITOR ATTACHED TO THE PATIENT. IV ACCESS NOTED ON THE RAC G [address] AND INTACT. SAFETY MEASURES PUT IN PLACE AND MAINTAINED. CALL LIGHT PLACE WITHIN REACH. WILL CONTINUE TO MONITOR PATIENT AND ANTICIPATE NEEDS
[2018-10-09] MEDS ORDERED: ASPIRIN 300 MG/SUPP.RECT RC ONE ×2 (18:48→19:00)
--- NOTE | 2018-10-09 19:15 | NUR ---
RN NOTES PAGED [facility] TO OBTAIN ADMISSION ORDERS. SPOKE TO DELFINO
[2018-10-09] MEDS ORDERED: ACETAMINOPHEN 325 MG TABLET PO PRN (19:30)
[2018-10-09] MEDS ORDERED: ONDANSETRON HCL/PF 4 MG/2 ML VIAL IVP PRN (19:30)
[2018-10-09] MEDS ORDERED: MAG HYDROX/AL HYDROX/SIMETH 30 ML UDC PO PRN (19:30)
[2018-10-09] MEDS ORDERED: HYDROCODONE/APAP 5/325MG 1 EACH TABLET PO PRN (19:30)
[2018-10-09] MEDS ORDERED: ENOXAPARIN SODIUM 40 MG/0.4 ML DISP.SYRIN SQ SCH (19:30)
[2018-10-09] MEDS ORDERED: MAGNESIUM HYDROXIDE 30 ML UDC PO PRN ×2 (19:30)
[2018-10-09] MEDS ORDERED: CEFEPIME 1 GM in IV NS 0.9% 50 ML IV SCH (19:30)
[2018-10-09] MEDS ORDERED: NA PHOS,M-B/NA PHOS,DI-BA 1 EA ENEMA RC PRN (19:30)
[2018-10-09] MEDS ORDERED: Z GUARD REMEDY 2 OZ OINT TP PRN (19:30)
[2018-10-09] MEDS ORDERED: ZOLPIDEM TARTRATE 5 MG TABLET PO PRN (19:30)
[2018-10-09 20:00] VITALS: BP 93/47
[2018-10-09] MEDS ORDERED: POTASSIUM CHLORIDE 20 MEQ TAB.PRT.SR PO ONE (20:00)
--- NOTE | 2018-10-09 20:00 | NUR ---
rn notes RECEIVED CALL FROM LAB PATIENT'S LACTIC ACID IS 2.6 FROM 2.9, TROPONIN 0.678 FROM 0.401. CALLED MD HELENA REA AND NEW VERBAL ORDER OF IVF 0.9% NS AT 100ML/HR ONCE IV , POTASSIUM 60MEQ PO ONCE AND LACTIC ACID LAB CHECK IN AM ARE IN PLACE. NO NEW ORDER FOR ELEVATED TROPONIN AT THIS TIME. ALL ORDERS READ BACK AND VERIFICATION HAS BEEN DONE . WILL CONTINUE TO MONITOR PATIENT CLOSELY. Addendum: 10/10/18 at 0349 by ISHA CHANCE RN MADE MD AWARE OF POTASSIUM LEVEL 3.2 AND NEW VERBAL ORDER OF 60MEQ PO POTASSIUM CHLORIDE ONE TIME IS IN PLACE . ALL THE ORDERS HAS BEEN READ BACK AND VERIFIED WITH .
--- NOTE | 2018-10-09 20:00 | NUR ---
RN INITIAL NOTES RECEIVED PATIENT REPORT FROM AM RN , PATIENT WITH SPONTANEOUS EYE OPENING, ABLE TO TALKED BUT WORDS ARE UNCLEAR. ON ROOM AIR . NOT ON ANY FORM OF DISTRESS, NO INDICATION OF PAIN NOTED. SKIN ASSESSMENT DONE: SKIN INTACT. TELEMONITOR ATTACHED TO THE PATIENT.SR ON THE MONITOR. IV ACCESS NOTED ON THE RAC G [address] AND INTACT. NO CHEST PAIN, NO SOB , NO ANY OTHER PAIN AT THIS TIME. SAFETY MEASURES PUT IN PLACE AND MAINTAINED. CALL LIGHT PLACE WITHIN REACH. WILL CONTINUE TO MONITOR PATIENT AND ANTICIPATE NEEDS ACCORDINGLY.
[2018-10-09] MEDS ORDERED: FEE PK DOSING 1 MIN EA MC ONE (20:04)
[2018-10-09] MEDS ORDERED: VANCOMYCIN 1.25 GM in IV D5W 500 ML IV ONE (20:30)
[2018-10-09] MEDS ORDERED: CARVEDILOL 3.125 MG TABLET PO SCH (21:00)
[2018-10-09] MEDS: DIVALPROEX SODIUM 125 MG CAP.SPRINK PO SCH (21:39)
[2018-10-09] MEDS: risperiDONE 0.25 MG TABLET PO SCH (21:39)
[2018-10-09] MEDS: ATORVASTATIN 10 MG TABLET PO SCH (21:40)
[2018-10-09] MEDS: CEFEPIME 2 GM in IV D5W 100 ML IV SCH (21:40)
[2018-10-09] MEDS ORDERED: VALPROIC ACID 250 MG/5 ML UDC PO SCH (22:00)
[2018-10-10] VITALS: BP_SYST 104; BP_SYST 106; BP_DIAS 51; BP_DIAS 56
--- NOTE | 2018-10-10 00:20 | NUR ---
RN NOTES GOT A CALL FROM LAB PATIENT'S TROPONIN IS 2.029.MD EDUARDA REA NOTIFIED AND NO NEW ORDER FO NOW.WILL CONTINUE TO MONITOR PATIENT CLOSELY.
[2018-10-10] MEDS: VANCOMYCIN HCL 125 MG/2.5 ML ORAL.SUSP PO SCH ×5 (00:56→23:59)
[2018-10-10] MEDS ORDERED: HEPARIN INFUSION/D5W 500 ML IV PRN (02:00)
--- NOTE | 2018-10-10 02:39 | NUR ---
RN NOTES GOT A CALL FROM PHARMACY THAT MD TAHIR LOZANO ORDERED HEPARIN DRIP FOR THIS PATIENT DUE TO ELEVATED TROPONIN LEVEL OF 2.029. CALLED BACK MD BERNA LOZANO TO VERIFY BOLUS ADMINISTRATION OF HEPARIN AND PER MD NO BOLUS NEEDED BECAUSE LOVENOX 40MG AT 2137 HAS BEEN ADMINISTERED. WILL CALCULATE MEDICATION DOSAGE AND CALL THE PHARMACY TO VERIFY THE MEDICATION. WILL CONTINUE TO MONITOR PATIENT CLOSELY. Addendum: 10/10/18 at 0339 by ISHA CHANCE RN ALL ORDER READBACK AND VERIFICATION HAS BEEN DONE WITH MD BERNA LOZANO.
[2018-10-10] MEDS ORDERED: HEPARIN INFUSION/D5W 500 ML IV ONE (03:43)
[2018-10-10 04:00] VITALS: BP 95/44
--- NOTE | 2018-10-10 04:00 | NUR ---
RN NOTES PATIENT HAS BEEN STARTED ON HEPARIN DRIP AT 945UNIT/HR(18.9ML/HR) AT 0400. PTT CHECK ORDER IS PLACED AT 1000 AM . WILL CONTINUE TO MONITOR PATIENT CLOSELY.
[2018-10-10 04:16] LABS: BASOPHILS % (AUTO) 0.1 % (0.0-2.0); EOSINOPHILS % (AUTO) 0.2 % (0.0-6.0); HEMATOCRIT 34 % (39-51); HEMOGLOBIN 11.5 g/dL (13.5-17.5); LYMPHOCYTES # (AUTO) 1.8 /CMM (0.8-4.8); LYMPHOCYTES % (AUTO) 15.2 % (20.0-44.0); MEAN CORPUSCULAR HGB CONC 34 g/dl (31.0-36.0); MEAN CORPUSCULAR VOLUME 88 fL (80-96); MONOCYTES # (AUTO) 0.9 /CMM (0.1-1.30); MONOCYTES % (AUTO) 7.5 % (2.0-12.0); NEUTROPHILS # (AUTO) 9.2 /CMM (1.8-8.9); PLATELET COUNT (AUTO) 163 /CMM (150-450); RED BLOOD CELL COUNT(AUTO) 3.87 MIL/uL (4.5-6.0); WHITE BLOOD COUNT (AUTO) 11.9 K/uL (4.3-11.0)
[2018-10-10 04:28] LABS: CALCIUM, SERUM 7.8 mg/dL (8.5-10.1); CARBON DIOXIDE 28 mmol/L (21-32); CHLORIDE 103 mmol/L (98-107); CREATININE 0.7 mg/dL (0.6-1.3); GLUCOSE 108 mg/dL (74-106); MAGNESIUM 1.4 mg/dL (1.8-2.4); PHOSPHORUS 2.8 mg/dL (2.5-4.9); POTASSIUM 3.4 mmol/L (3.5-5.1); SODIUM SERUM 138 mmol/L (136-145); UREA NITROGEN, BLOOD 16 mg/dL (7-18)
--- NOTE | 2018-10-10 04:44 | NUR ---
rn notes got a call from lab patient's troponin level is 3.748 and lactic acid 2.1. MD Melonie Lucio aware and no new order for now. patient is on heparin drip at 18.9ml/hr(945unit/hr) at this time. no signs and symptoms of bleeding noted at this time.
[2018-10-10 05:07] LABS: CHOLESTEROL 94 mg/dL (<200); HDL CHOLESTEROL 31 mg/dL (40-60); LDL 61 mg/dL (0-99); TRIGLYCERIDES 28 mg/dL (30-150)
--- NOTE | 2018-10-10 07:00 | NUR ---
LABORATORY ANIMAL FACILITY SUPERVISOR OPENING NOTES RECEIVED PT LYING ON BED.ALERT/ORIENTED X2.ON TELE HR IS 81 WITH SR.ON ROOM AIR,TOLERATING WELL.NO SOB AND ACUTE DISTRESS NOTED.IV LINE IS ON LEFT FA G20 WITH IV HEPARIN 945 UNIT/HR IS RUNNING AND IN RIGHT AC G 20 WITH IV FLUID NS@100ML/HR IS RUNNING.SITE IS CLEAN,DRY AND INTACT.NO INFILTRATION NOTED.BED IS IN LOW POSITION AND LOCKED,CALL LIGHT IS WITHIN REACH.WILL CONTINUE TO MONITOR THE PT CLOSELY.
[2018-10-10 08:00] VITALS: BP 96/39
[2018-10-10] MEDS: CEFEPIME 2 GM in IV D5W 100 ML IV SCH ×2 (08:20→20:19)
[2018-10-10] MEDS: LIPASE/PROTEASE/AMYLASE 1 EACH CAPSULE.DR PO SCH ×3 (08:22→17:12)
[2018-10-10] MEDS: risperiDONE 0.25 MG TABLET PO SCH ×2 (08:22→16:46)
[2018-10-10] MEDS: PANTOPRAZOLE 40 MG TABLET.DR PO SCH (08:22)
[2018-10-10] MEDS: DIVALPROEX SODIUM 125 MG CAP.SPRINK PO SCH ×4 (08:22→21:15)
[2018-10-10] MEDS: ASPIRIN 81 MG TAB.CHEW PO SCH (08:22)
[2018-10-10] MEDS: DOCUSATE SODIUM 100 MG CAPSULE PO SCH (08:22)
[2018-10-10] MEDS ORDERED: POTASSIUM CHLORIDE 20 MEQ TAB.PRT.SR PO SCH (09:30)
[2018-10-10] MEDS: VANCOMYCIN 1 GM in IV D5W 250 ML IV SCH ×2 (09:45→21:15)
--- NOTE | 2018-10-10 10:50 | NUR ---
GEOLOGY INSTRUCTOR NOTES APTT-66.9,CONTINUE THE SAME DOSE OF HEPARIN 18.9ML/HR WITH 945 UNIT.HR IS RUNNING,PT TOLERATED WELL.
[2018-10-10] MEDS: Magnesium 1GM/D5W 100ML PREMIX 100 ML IV SCH ×4 (10:57→17:15)
--- NOTE | 2018-10-10 11:15 | NUR ---
FRUIT CANNER NOTES VISH,PHARMACIST CALLED AND ORDERED TO ROUND THE HEPARIN DRIP FROM 945 TO 950 UNIT/HR.
--- NOTE | 2018-10-10 11:17 | NUR ---
PHYSICIAN GENERAL INTERNAL MEDICINE NOTES ,CARDIOLOGY ORDERED TO D/C IV HEPARIN AND START LOVENOX SQ.NEW ORDERS NOTED AND CARRIED OUT.
[2018-10-10 12:00] VITALS: BP 93/37
[2018-10-10] MEDS: ENOXAPARIN SODIUM 60 MG/0.6 ML DISP.SYRIN SQ SCH (12:43)
[2018-10-10 16:00] VITALS: BP 87/42
--- NOTE | 2018-10-10 17:30 | NUR ---
BUNDLE TIER NOTES CALLED REGARDS TO CONTINUE TAB COREG 3.125 MG,SAID TO CONTINUE THE MEDICINE WITH PARAMETER TO HOLD SBP<100 AND VT<60,MADE AWARE ABOUT THE LOW BP.PHARMACIST ALEJANDRA MADE AWARE ABOUT IT AND ORDERED TO D/C C DIFF STOOL COLLECTION PT IS NOT MEET WITH THE PARAMETER(PT HAS SOFT STOOL CONSISTENCY).NEW ORDERS NOTED AND CARRIED OUT.
--- NOTE | 2018-10-10 19:00 | NUR ---
WEARING APPAREL ASSEMBLER CLOSING NOTES PT IS LYING ON BED,TOLERATING WELL.NO SOB AND ACUTE DISTRESS NOTED.IV LINE IS IN PLACE.NO SIGNIFICANT CHANGES NOTED IN THE SHIFT.
--- NOTE | 2018-10-10 19:45 | NUR ---
TELECOMMUNICATION LINES REPAIRER NOTE: RECEIVED PT ON BED ALERT AND ORIENTED X1 WITH EPISODES OF CONFUSION. NO APPARENT DISTRESS NOTED. NO COMPLAINTS OF PAIN OR DISCOMFORT AT THIS TIME. ON ROOM AIR, BREATHING EVEN AND UNLABORED WITH NORMAL RESPIRATIONS. ON TELE MONITOR SINUS RHYTHM HR 89BPM. IV ON LEFT FOREARM #20 AND RIGHT ANTECUBITAL #20 INTACT AND FLUSHING WELL. KEPT CLEAN, DRY AND COMFORTABLE. CALL LIGHT PLACED WITHIN REACH. SAFETY AND FALL PRECAUTIONS OBSERVED AND MAINTAINED. WILL CONTINUE TO MONITOR PT.
[2018-10-10 20:00] VITALS: BP 90/56
[2018-10-10] MEDS: CARVEDILOL 3.125 MG TABLET PO SCH (20:25)
[2018-10-10] MEDS ORDERED: CARVEDILOL 3.125 MG TABLET PO SCH (21:00)
[2018-10-10] MEDS: ATORVASTATIN 10 MG TABLET PO SCH (21:15)
--- NOTE | 2018-10-10 21:30 | NUR ---
BOAT MOTOR MECHANIC NOTE: PT BP 90/56, ELLIOT KENNEDY AWARE WITH NO NEW ORDERS
[2018-10-11] VITALS: BP 106/56
[2018-10-11] MEDS: ENOXAPARIN SODIUM 60 MG/0.6 ML DISP.SYRIN SQ SCH ×2 (00:53→12:06)
[2018-10-11 04:00] VITALS: BP 111/61
[2018-10-11] MEDS: VANCOMYCIN HCL 125 MG/2.5 ML ORAL.SUSP PO SCH ×4 (05:47→23:59)
--- NOTE | 2018-10-11 06:55 | NUR ---
DATA REPORT ANALYST NOTE: NO CHANGES NOTED THROUGHOUT THE SHIFT. NO APPARENT DISTRESS NOTED. DENIES PAIN AND DISCOMFORT AT THIS TIME. NO SOB NOTED. ON TELE MONITOR SINUS RHYTHM HR 69BPM. KEPT CLEAN, DRY AND COMFORTABLE. CALL LIGHT PLACED WITHIN REACH. SIDE RAILS UP X3. BED ALARM ON. BED LOCKED AND IN LOWEST POSITION. WILL ENDORSE TO DAY SHIFT RN FOR CONTINUITY OF CARE
--- NOTE | 2018-10-11 07:10 | NUR ---
OPERATIONS CHIEF OPENING NOTES RECEIVED PT LYING ON BED.ALERT/ORIENTED X1.ON TELE HR IS 68 WITH PAC.ON ROOM AIR,TOLERATING WELL.NO SOB AND ACUTE DISTRESS NOTED.IV LINE IS ON LEFT FA G20,SL AND IN RIGHT AC G 20 WITH IV FLUID NS TKO @5ML/HR IS RUNNING.SITE IS CLEAN,DRY AND INTACT.NO INFILTRATION NOTED.BED IS IN LOW POSITION AND LOCKED,CALL LIGHT IS WITHIN REACH.WILL CONTINUE TO MONITOR THE PT CLOSELY.
[2018-10-11] MEDS: PANTOPRAZOLE 40 MG TABLET.DR PO SCH (07:41)
[2018-10-11] MEDS: LIPASE/PROTEASE/AMYLASE 1 EACH CAPSULE.DR PO SCH ×3 (07:41→17:02)
[2018-10-11 08:00] VITALS: BP 103/51
[2018-10-11 08:44] LABS: BASOPHILS % (AUTO) 0.1 % (0.0-2.0); EOSINOPHILS % (AUTO) 0.6 % (0.0-6.0); HEMATOCRIT 32 % (39-51); HEMOGLOBIN 10.8 g/dL (13.5-17.5); LYMPHOCYTES # (AUTO) 1.2 /CMM (0.8-4.8); LYMPHOCYTES % (AUTO) 9.4 % (20.0-44.0); MEAN CORPUSCULAR HGB CONC 33 g/dl (31.0-36.0); MEAN CORPUSCULAR VOLUME 88 fL (80-96); MONOCYTES # (AUTO) 0.5 /CMM (0.1-1.30); MONOCYTES % (AUTO) 4.2 % (2.0-12.0); NEUTROPHILS # (AUTO) 10.7 /CMM (1.8-8.9); NEUTROPHILS % (AUTO) 85.7 % (43.0-81.0); PLATELET COUNT (AUTO) 138 /CMM (150-450); RED BLOOD CELL COUNT(AUTO) 3.68 MIL/uL (4.5-6.0); WHITE BLOOD COUNT (AUTO) 12.5 K/uL (4.3-11.0)
[2018-10-11] MEDS: DIVALPROEX SODIUM 125 MG CAP.SPRINK PO SCH ×4 (08:46→21:09)
[2018-10-11] MEDS: DOCUSATE SODIUM 100 MG CAPSULE PO SCH (08:46)
[2018-10-11] MEDS: risperiDONE 0.25 MG TABLET PO SCH ×2 (08:46→16:37)
[2018-10-11] MEDS: ASPIRIN 81 MG TAB.CHEW PO SCH (08:46)
[2018-10-11] MEDS: CARVEDILOL 3.125 MG TABLET PO SCH ×2 (08:51→21:00)
[2018-10-11] MEDS: CEFEPIME 2 GM in IV D5W 100 ML IV SCH ×2 (08:54→20:08)
[2018-10-11 08:59] LABS: ALANINE AMINOTRANSFERASE 13 U/L (12-78); ASPARTATE AMINOTRANSFERASE 7 U/L (15-37); CALCIUM, SERUM 7.7 mg/dL (8.5-10.1); CARBON DIOXIDE 24 mmol/L (21-32); CHLORIDE 101 mmol/L (98-107); CREATININE 0.6 mg/dL (0.6-1.3); GLUCOSE 99 mg/dL (74-106); MAGNESIUM 2.1 mg/dL (1.8-2.4); PHOSPHORUS 3.1 mg/dL (2.5-4.9); POTASSIUM 3.6 mmol/L (3.5-5.1); SODIUM SERUM 134 mmol/L (136-145); UREA NITROGEN, BLOOD 17 mg/dL (7-18)
[2018-10-11 09:26] LABS: ALKALINE PHOSPHATASE 37 U/L (46-116); BILIRUBIN,TOTAL 0.4 mg/dL (0.2-1.0); TOTAL PROTEIN, SERUM 5.9 g/dL (6.4-8.2)
[2018-10-11] MEDS: VANCOMYCIN 1 GM in IV D5W 250 ML IV SCH ×2 (09:54→21:08)
[2018-10-11 16:00] VITALS: BP 103/53
--- NOTE | 2018-10-11 18:44 | NUR ---
MS RN CLOSING NOTES PT IS LYING ON BED,ALERT/ORIENTED X1 WITH CONFUSION.IV LINE IS IN PLACE WITH TKO IS RUNNING.NO INFILTRATION NOTED.NO SIGNIFICANT CHANGES NOTED IN THE SHIFT.WILL ENDORSE TO COMMERCIAL COORDINATOR RN FOR CODIE.
--- NOTE | 2018-10-11 19:32 | NUR ---
MS RN NOTES RECEIVED PT ON BED. A/O X1. ON ROOM AIR NO RESPIRATORY DISTRESS NOTED. IV ACCESS ON RAC G20 AND LFA G20 PATENT AND INTACT. HEAD OF BED ELEVATED. SIDE RAILS UP. CALL LIGHT WITHIN REACH. BED ALARM ON. WILL MONITOR PT CLOSELY.
[2018-10-11 20:00] VITALS: BP 113/47
[2018-10-11] MEDS: ATORVASTATIN 10 MG TABLET PO SCH (21:08)
[2018-10-12] MEDS: ENOXAPARIN SODIUM 60 MG/0.6 ML DISP.SYRIN SQ SCH
[2018-10-12 04:00] VITALS: BP 110/54
[2018-10-12] MEDS: VANCOMYCIN HCL 125 MG/2.5 ML ORAL.SUSP PO SCH ×3 (05:26→17:26)
--- NOTE | 2018-10-12 06:46 | NUR ---
MS RN NOTES NO ACUTE CHANGES NOTED DURING THE SHIFT. PROVIDED COMFORT AND SAFETY. WILL ENDORSE TO THE AM NURSE FOR CONTINUITY OF CARE.
[2018-10-12 06:55] LABS: BASOPHILS % (AUTO) 0.2 % (0.0-2.0); EOSINOPHILS % (AUTO) 1.3 % (0.0-6.0); HEMATOCRIT 35 % (39-51); HEMOGLOBIN 11.7 g/dL (13.5-17.5); LYMPHOCYTES # (AUTO) 1.4 /CMM (0.8-4.8); LYMPHOCYTES % (AUTO) 13.9 % (20.0-44.0); MEAN CORPUSCULAR HGB CONC 33 g/dl (31.0-36.0); MEAN CORPUSCULAR VOLUME 88 fL (80-96); MONOCYTES # (AUTO) 0.8 /CMM (0.1-1.30); MONOCYTES % (AUTO) 7.5 % (2.0-12.0); NEUTROPHILS # (AUTO) 7.8 /CMM (1.8-8.9); NEUTROPHILS % (AUTO) 77.1 % (43.0-81.0); PLATELET COUNT (AUTO) 123 /CMM (150-450); RED BLOOD CELL COUNT(AUTO) 3.98 MIL/uL (4.5-6.0); WHITE BLOOD COUNT (AUTO) 10.1 K/uL (4.3-11.0)
[2018-10-12 07:05] LABS: CALCIUM, SERUM 8.1 mg/dL (8.5-10.1); CARBON DIOXIDE 29 mmol/L (21-32); CHLORIDE 101 mmol/L (98-107); CREATININE 0.5 mg/dL (0.6-1.3); GLUCOSE 100 mg/dL (74-106); PHOSPHORUS 3.1 mg/dL (2.5-4.9); SODIUM SERUM 134 mmol/L (136-145); UREA NITROGEN, BLOOD 12 mg/dL (7-18)
[2018-10-12 08:00] VITALS: BP 121/71
[2018-10-12 08:14] LABS: NEUTROPHILS % (MANUAL) 72 (42-76)
[2018-10-12 08:15] LABS: BAND % (MANUAL) 1 % (0.0-5.0); EOSINOPHILS % (MANUAL) 1 % (0-4); LYMPHOCYTES % (MANUAL) 19 % (16-48); MONOCYTES % (MANUAL) 7 % (0-11.0)
[2018-10-12] MEDS: PANTOPRAZOLE 40 MG TABLET.DR PO SCH (08:53)
[2018-10-12] MEDS: CEFEPIME 2 GM in IV D5W 100 ML IV SCH (08:53)
[2018-10-12] MEDS: DIVALPROEX SODIUM 125 MG CAP.SPRINK PO SCH ×3 (08:53→17:26)
[2018-10-12] MEDS: LIPASE/PROTEASE/AMYLASE 1 EACH CAPSULE.DR PO SCH ×3 (08:53→17:26)
[2018-10-12] MEDS: risperiDONE 0.25 MG TABLET PO SCH ×2 (08:54→17:26)
[2018-10-12] MEDS: CARVEDILOL 3.125 MG TABLET PO SCH (08:54)
[2018-10-12] MEDS: DOCUSATE SODIUM 100 MG CAPSULE PO SCH (08:54)
[2018-10-12] MEDS: ASPIRIN 81 MG TAB.CHEW PO SCH (08:54)
[2018-10-12 16:00] VITALS: BP 113/53
--- NOTE | 2018-10-12 19:59 | NUR ---
RN D/C NOTE RECEIVED D/C ORDER TO SNF. REPORT GIVEN TO ELISE SHAH @[facility]. PATIENT A/OX2, NO ACUTE DISTRESS OR SOB NOTED. ON ROOM AIR. SKIN INTACT, NO PICTURES TO BE TAKEN. IV SITES REMOVED X2, NO S/S BLEEDING, CATHETERS INTACT. NO NEW PRESCRIPTIONS. BELONGINGS CHECKLIST SIGNED. TAKEN BY AMBULANCE PERSONNEL @1999
== END 2018-10-12 20:00 | DRG 280 ==
LOC: ER 15:54 → TELE1 17:27 → MEDSG1 10-11 09:56
PROVIDERS: ADMIT Nurse Practitioner Acute Care; ATTEND Internal Medicine
DX: I21.4 Non-ST elevation (NSTEMI) myocardial infarction (principal); E43 Unspecified severe protein-calorie malnutrition; G92 Toxic encephalopathy; E87.2 Acidosis; E87.1 Hypo-osmolality and hyponatremia; I50.30 Unspecified diastolic (congestive) heart failure; I25.10 Atherosclerotic heart disease of native coronary artery without angina pectoris; F02.80 Dementia in other diseases classified elsewhere, unspecified severity, without behavioral disturbance, psychotic disturbance, mood disturbance, and anxiety; G20 Parkinson's disease; E87.6 Hypokalemia; K21.9 Gastro-esophageal reflux disease without esophagitis; D69.6 Thrombocytopenia, unspecified; D63.8 Anemia in other chronic diseases classified elsewhere; E83.42 Hypomagnesemia; E88.09 Other disorders of plasma-protein metabolism, not elsewhere classified; I11.0 Hypertensive heart disease with heart failure; F20.9 Schizophrenia, unspecified; F31.9 Bipolar disorder, unspecified; Z68.20 Body mass index [BMI] 20.0-20.9, adult; D72.819 Decreased white blood cell count, unspecified; Z79.82 Long term (current) use of aspirin; I25.2 Old myocardial infarction; F41.9 Anxiety disorder, unspecified; Z79.899 Other long term (current) drug therapy
CPT/HCPCS: 36415; 71045-TC; 80048-TC; 80053-TC; 80061-TC; 80076-TC; 80202-TC; 81000-TC; 83605-TC; 83735-TC; 84100-TC; 84484-TC; 85025-TC; 85730-TC; 87040-TC; 87081-TC; 87086-TC; 92526; 92611-TC; A4216; G0378; J0692; J0696; J1644; J1650; J3370; J3475; J7030; J7050; J7060